=== PATIENT | female | born 1940 | race Caucasian/White ===

== ENCOUNTER 2019-05-14 06:00 | Outpatient (RCR) | payer MEDICARE, OTHER, SELFPAY | END 2019-06-13 00:01 | LOC: SPT 06:00 | PROVIDERS: Family Provider Internal Medicine; Visit Provider Internal Medicine | DX: I89.0 Lymphedema, not elsewhere classified (principal) | CPT/HCPCS: 97140 ==

== ENCOUNTER 2019-06-14 06:00 | Outpatient (RCR) | payer MEDICARE, OTHER, SELFPAY | END 2019-07-14 23:59 | disposition home or self-care (01) | LOC: SPT 06:00 | PROVIDERS: Family Provider Internal Medicine; PCP Internal Medicine; Visit Provider Internal Medicine | DX: I89.0 Lymphedema, not elsewhere classified (principal) | CPT/HCPCS: 97140 ==

== ENCOUNTER 2019-07-15 06:00 | Outpatient (RCR) | payer MEDICARE, OTHER, SELFPAY | END 2019-08-12 23:59 | disposition home or self-care (01) | LOC: SPT 06:00 | PROVIDERS: Family Provider Internal Medicine; PCP Internal Medicine; Visit Provider Internal Medicine | DX: I89.0 Lymphedema, not elsewhere classified (principal) | CPT/HCPCS: 97140 ==

== ENCOUNTER 2019-09-13 06:00 | Outpatient (RCR) | payer MEDICARE, OTHER, SELFPAY | END 2019-10-12 23:59 | disposition home or self-care (01) | LOC: SPT 06:00 | PROVIDERS: Family Provider Internal Medicine; PCP Internal Medicine; Visit Provider Internal Medicine | DX: I89.0 Lymphedema, not elsewhere classified (principal) | CPT/HCPCS: 97140 ==

== ENCOUNTER 2019-12-13 06:00 | Outpatient (RCR) | payer MEDICARE, OTHER, SELFPAY | END 2020-01-12 23:59 | disposition home or self-care (01) | LOC: SPT 06:00 | PROVIDERS: PCP Internal Medicine; Visit Provider Internal Medicine | DX: I97.2 Postmastectomy lymphedema syndrome (principal) | CPT/HCPCS: 97140 ==

== ENCOUNTER 2020-01-13 06:00 | Outpatient (RCR) | payer MEDICARE, OTHER, SELFPAY | END 2020-02-12 23:59 | disposition home or self-care (01) | LOC: SPT 06:00 | PROVIDERS: PCP Internal Medicine; Visit Provider Internal Medicine | DX: M54.5 Low back pain (principal); I89.0 Lymphedema, not elsewhere classified | CPT/HCPCS: 97140 ==

== ENCOUNTER 2020-02-13 06:00 | Outpatient (RCR) | payer MEDICARE, OTHER, SELFPAY | END 2020-03-13 23:59 | disposition home or self-care (01) | LOC: SPT 06:00 | PROVIDERS: PCP Internal Medicine; Visit Provider Internal Medicine | DX: I89.0 Lymphedema, not elsewhere classified (principal) | CPT/HCPCS: 97140 ==

== ENCOUNTER 2020-07-15 06:00 | Outpatient (RCR) | payer MEDICARE, OTHER, SELFPAY | END 2020-08-11 23:59 | disposition home or self-care (01) | LOC: SPT 06:00 | PROVIDERS: PCP Internal Medicine; Visit Provider Internal Medicine | DX: M25.551 Pain in right hip (principal); M25.511 Pain in right shoulder | CPT/HCPCS: 97140 ==

== ENCOUNTER 2020-12-12 06:00 | Outpatient (RCR) | payer MEDICARE, OTHER, SELFPAY | END 2021-01-11 23:59 | disposition home or self-care (01) | LOC: SPT 06:00 | PROVIDERS: PCP Internal Medicine; Visit Provider Internal Medicine | DX: I97.2 Postmastectomy lymphedema syndrome (principal) | CPT/HCPCS: 97140 ==

== ENCOUNTER 2021-01-12 06:00 | Outpatient (RCR) | payer MEDICARE, OTHER, SELFPAY | END 2021-02-11 23:59 | disposition home or self-care (01) | LOC: SPT 06:00 | PROVIDERS: PCP Internal Medicine; Visit Provider Internal Medicine | DX: M25.551 Pain in right hip (principal); M25.511 Pain in right shoulder | CPT/HCPCS: 97140 ==

== ENCOUNTER 2021-08-14 06:00 | Outpatient (RCR) | payer MEDICARE, OTHER, SELFPAY | END 2021-09-11 23:59 | disposition home or self-care (01) | LOC: SPT 06:00 | PROVIDERS: PCP Internal Medicine; Referring Provider Internal Medicine; Visit Provider Internal Medicine | DX: G89.29 Other chronic pain (principal); M54.50 Low back pain, unspecified; I89.0 Lymphedema, not elsewhere classified | CPT/HCPCS: 97110; 97140; 97162 ==

== ENCOUNTER 2021-09-12 06:00 | Outpatient (RCR) | payer MEDICARE, OTHER, SELFPAY | END 2021-10-11 23:59 | disposition home or self-care (01) | LOC: SPT 06:00 | PROVIDERS: PCP Internal Medicine; Referring Provider Internal Medicine; Visit Provider Internal Medicine | DX: G89.29 Other chronic pain (principal) | CPT/HCPCS: 97110; 97116 ==

== ENCOUNTER 2021-10-12 06:00 | Outpatient (RCR) | payer MEDICARE, OTHER, SELFPAY | END 2021-11-11 23:59 | disposition home or self-care (01) | LOC: SPT 06:00 | PROVIDERS: PCP Internal Medicine; Referring Provider Internal Medicine; Visit Provider Internal Medicine | DX: G89.29 Other chronic pain (principal) | CPT/HCPCS: 97110; 97112 ==

== ENCOUNTER 2022-01-09 06:00 | Outpatient (RCR) | payer MEDICARE, OTHER, SELFPAY | END 2022-01-11 23:59 | disposition home or self-care (01) | LOC: SPT 06:00 | PROVIDERS: PCP Internal Medicine; Referring Provider Family Medicine; Visit Provider Family Medicine | DX: I89.0 Lymphedema, not elsewhere classified (principal) | CPT/HCPCS: 97161 ==

== ENCOUNTER 2022-02-12 06:00 | Outpatient (RCR) | payer MEDICARE, OTHER, SELFPAY | END 2022-03-13 23:59 | disposition home or self-care (01) | LOC: SPT 06:00 | PROVIDERS: PCP Internal Medicine; Referring Provider Family Medicine; Visit Provider Family Medicine | DX: M62.89 Other specified disorders of muscle (principal) | CPT/HCPCS: 97140 ==

== ENCOUNTER 2022-02-25 10:45 | Inpatient (IN) | payer MEDICARE, OTHER, SELFPAY ==
[2022-02-25] VITALS (59 sets, daily range): BP systolic 97–138; BP diastolic 49–74; PULSE 67–96; RESP 14–26; TEMP 36.6–37.9; O2SAT 78–100; BMI 28.3
[2022-02-25 12:13] LABS: Basophils # 0.1 10^3/uL (0.0-0.1); Basophils % 0.3 %; Eosinophils % 0.1 %; Hematocrit 33.5 % (37.0-47.0); Hemoglobin 11.1 g/dL (11.5-15.3); Lymphocytes # 0.3 10^3/uL (0.8-4.8); Lymphocytes % 1.7 %; Mean Corpuscular HGB Conc 33.1 g/dL (30.0-36.0); Mean Corpuscular Volume 93.6 fl (81-99); Mean Platelet Volume 11.1 fL (7.4-10.4); Monocytes # 1.3 10^3/uL (0.2-0.9); Monocytes % 8.1 %; Neutrophils # 14.08 10^3/uL (1.8-7.7); Neutrophils % 88.5 %; Nucleated Red Blood Cells % 0 %; Platelet Count 197 10^3/cmm (130-400); Red Blood Count 3.58 10^6/uL (4.1-5.3); Red Cell Distribution Width 14.1 % (12.1-15.1); White Blood Count 15.9 10^3/uL (4.0-10.0)
--- NOTE | 2022-02-25 12:23 | XR_ITS ---
WS: [id number] XR chest 1V portable [id number] REASON FOR EXAM: dyspnea FINDINGS: Moderate tortuosity and ectasia of the thoracic aorta with calcification of the aortic arch. Normal heart size. Calcified granulomatous disease in both hemithoraces. There are reticular interstitial opacities in both lower lung erickson and a vague opacification in the right lower lung field. There are also vague opacities the superior to the left hilum. These abnorma lities are of unknown chronicity. No prior examinations for comparison. Left shoulder replacement. Mild changes of degenerative spondylosis in the mid and lower thoracic spi ne. XR/XR chest 1V portable [id number] IMPRESSION: No findings of congestive heart failure. Opacities in both lung erickson of unknown chronicity most likely chronic however potentially representing subacute/acute pneumonitis.
--- NOTE | 2022-02-25 12:24 | W.ED.GENADLT ---
HPI - General Adult General: Chief complaint: General Medical Stated complaint: Sent by Dr Sweet for UTI Time Seen by Provider: 02/25/22 11:05 Source: patient Mode of arrival: ambulatory Limitations: no limitations History of Present Illness: 81-year-old female presents emergency room from primary care doctor's office she was seen earlier this week and had a UTI. She was started on Bactrim DS she does not seem to have improved and actually may be worsening a little bit she is now mildly hypoxic requiring 2 to 3 L were normally she does not use any oxygen. In addition to that she is not really tracking very well. She is a little bit confused and disoriented when asking questions she seems to struggle a little bit answering. His daughter at the bedside who confirms this. She is unsure of the date or day she is aware of place and month. She has single episode of vomiting no hematemesis or coffee-ground emesis, no hematochezia or melena no flank pain. No specific abdominal pain. Onset (ago): day(s) Severity: moderate Quality: aching Relieving factors: none Exacerbating factors: none Associated symptoms: Reports confusion, decreased appetite, dyspnea, fevers/chills, malaise, nausea, palpitations, short of breath, vomiting and weakness; Deny chest pain, diaphoresis, headache(s), rash, seizures or syncope Treatments prior to arrival: none Review of Systems Const: Reports: fever(s), chills, fatigue and malaise; Denies: diaphoresis ENMT: Denies: throat pain, ear or mastoid pain, nasal discharge or nasal congestion Card: Reports: palpitations; Denies: chest pain or syncope Resp: Reports: dyspnea and non-productive cough GI: Reports: abdominal pain, nausea and vomiting : Denies: flank pain, difficulty voiding, dysuria, urinary frequency or urinary urgency Skin/Breast: Denies: rash Neuro: Reports: confusion; Denies: headache(s) PFSH ED PFSH: Medical History (Updated 02/25/22 @ 17:02 by Noah Merrill DO) Hyperlipidemia Hypothyroidism UTI (urinary tract infection) Social History (Updated 02/25/22 @ 17:00 by Noah Merrill DO) Smoking and tobacco status: never smoked Alcohol intake: never Physical Exam Const: COMMON NORMALS: no acute distress GENERAL APPEARANCE: cooperative and comfortable ORIENTATION/CONSCIOUSNESS: Yes awake HENMT: COMMON NORMALS: normocephalic, atraumatic and hearing grossly normal bilaterally HEAD & SCALP: normocephalic and atraumatic Eye: COMMON NORMALS: Equal, round and reactive pupils present, EOMs intact bilaterally, conjunctivae normal and no scleral icterus CONJUNCTIVA: Yes conjunctivae normal PUPIL: Yes Equal, round and reactive pupils present Neck/C-Spine: COMMON NORMALS: full ROM, no lymphadenopathy, supple and no JVD Resp: COMMON NORMALS: normal respiratory effort, No retractions, No use of accessory muscles and clear to auscultation bilaterally AUSCULTATION: clear to auscultation bilaterally Cardio: COMMON NORMALS: no JVD, regular rate, regular rhythm and No murmurs present (Cardio) RATE: regular rate RHYTHM: regular rhythm GI: COMMON NORMALS: Soft to palpation and No hepatosplenomegaly present AUSCULTATION: Yes normoactive bowel sounds PALPATION: Yes Soft to palpation, No Tenderness to palpation present (GI), No Guarding due to palpation present (GI) and Yes No hepatosplenomegaly present : BLADDER/KIDNEY EXAM: Yes CVA tenderness Back/Pelvis: GENERAL BACK: Yes CVA tenderness Extremity: COMMON NORMALS: normal to inspection, capillary refill normal, no clubbing, cyanosis or edema, no calf tenderness and no pedal edema Skin: COMMON NORMALS: no rashes or lesions noted GENERAL SKIN EXAM: no rashes or lesions noted Course Vital Signs: Vital signs: Vital Signs Temperature 100.3 F H 02/25/22 10:57 Pulse Rate 73 02/25/22 16:30 Respiratory Rate 16 02/25/22 16:30 Blood Pressure 114/65 02/25/22 16:30 Pulse Oximetry 96 02/25/22 16:30 Oxygen Delivery Me thod 02/25/22 12:30 [facility] - General Adult Medical Decision Making Labs and imaging reviewed. Patient has cystitis along with a pyelonephritis and early pneumonia. She is mildly hypoxic requiring oxygen whereas normally she does not use supplemental oxygen. Started on ceftriaxone and Zithromax cussed with hospitalist orders written Medical Records I reviewed the patient's medical records. Lab Data I reviewed the patient's lab results. : 02/25/22 11:43 02/25/22 11:43 Radiology Impressions Chest X-Ray 02/25/22 12:23 IMPRESSION: No findings of congestive heart failure. Opacities in both lung erickson of unknown chronicity most likely chronic however potentially representing subacute/acute pneumonitis. Abdomen/Pelvis CT 02/25/22 13:31 IMPRESSION: 1. Very minimal perinephric stranding around each kidney. No renal obstruction. May be due to mild acute urinary tract infection or could be chronic. 2. Normal appendix. 3. Marked fecal retention and obstipation throughout the RIGHT colon. 4. Sigmoid diverticulosis without acute diverticulitis. 5. Bilateral lower lobe bronchial wall thickening, greatest in the RIGHT lower lobe with volume loss and atelectasis. Consistent with acute bronchitis. 6. LEFT adrenal adenoma. Laboratory Results WBC 15.9 10^3/uL (4.0-10.0) H 02/25/22 11:43 RBC 3.58 10^6/uL (4.1-5.3) L 02/25/22 11:43 Hgb 11.1 g/dL (11.5-15.3) L 02/25/22 11:43 Hct 33.5 % (37.0-47.0) L 02/25/22 11:43 MCV 93.6 fl (81-99) 02/25/22 11:43 MCH 31.0 pg (28.0-34.0) 02/25/22 11:43 MCHC 33.1 g/dL (30.0-36.0) 02/25/22 11:43 RDW 14.1 % (12.1-15.1) 02/25/22 11:43 Plt Count 197 10^3/cmm (130-400) 02/25/22 11:43 MPV 11.1 fL (7.4-10.4) H 02/25/22 11:43 Neut % (Auto) 88.5 % 02/25/22 11:43 Lymph % (Auto) 1.7 % 02/25/22 11:43 [place] % (Auto) 8.1 % 02/25/22 11:43 Eos % (Auto) 0.1 % 02/25/22 11:43 Baso % (Auto) 0.3 % 02/25/22 11:43 Neut # (Auto) 14.08 10^3/uL (1.8-7.7) H 02/25/22 11:43 Lymph # (Auto) 0.3 10^3/uL (0.8-4.8) L 02/25/22 11:43 [place] # (Auto) 1.3 10^3/uL (0.2-0.9) H 02/25/22 11:43 Eos # (Auto) 0.0 10^3/uL (0.0-0.8) 02/25/22 11:43 Baso # (Auto) 0.1 10^3/uL (0.0-0.1) 02/25/22 11:43 Nucleated RBC % (auto) 0 % 02/25/22 11:43 Nucleated RBCs # 0.0 /100WBC 02/25/22 11:43 Sodium 132 mmol/L (136-145) L 02/25/22 11:43 Potassium 4.3 mmol/L (3.5-5.1) 02/25/22 11:43 Chloride 98 mmol/L (98-107) 02/25/22 11:43 Carbon Dioxide 19 mmol/L (22-29) L 02/25/22 11:43 Anion Gap 19.3 (5-19) H 02/25/22 11:43 BUN 66 mg/dL (8-23) H 02/25/22 11:43 Creatinine 3.4 mg/dL (0.5-0.9) H 02/25/22 11:43 GFR Calculation Not Reportable 02/25/22 11:43 Glucose 105 mg/dL (65-115) 02/25/22 11:43 Calculated Osmolality 293 mOsm/kg (285-295) 02/25/22 11:43 Calcium 9.0 mg/dL (8.5-10.5) 02/25/22 11:43 Urine Color Yellow (Yellow) 02/25/22 14: Urine Appearance Hazy (CLEAR) A 02/25/22 14: Urine pH 5 (5-7) 02/25/22 14: Ur Specific [place] 1.015 (1.005-1.030) 02/25/22 14: Urine Protein 1+ (Negative) H 02/25/22 14:25 Urine Glucose (UA) Norm (Normal) 02/25/22 14: Urine Ketones Negative (Negative) 02/25/22 14:25 Urine Blood Neg (Negative) 02/25/22 14:25 Urine Nitrate Negative (Negative) 02/25/22 14:25 Urine Bilirubin Neg (Negative) 02/25/22 14:25 Urine Urobilinogen Norm mg/dL (Negative) 02/25/22 14:25 Ur Leukocyte Esterase 2+ (Negative) H 02/25/22 14:25 Urine RBC 0-4 /hpf (0-2) H 02/25/22 14:25 Urine WBC 55-80 /hpf (0-5) H 02/25/22 14:25 Ur Squamous Epith Cells 0-4 /hpf (0-5) H 02/25/22 14:25 Amorphous Sediment Not Reportable 02/25/22 14:25 Urine Bacteria 4+ /hpf (NONE) H 02/25/22 14:25 Hyaline Casts 0-4 /lpf H 02/25/22 14:25 Fine Granular Casts 0-4 /lpf H 02/25/22 14:25 Discharge Plan Discharge Patient Disposition: Admitted As Inpatient Clinical Impression: UTI (urinary tract infection), Pyelonephritis, Encephalopathy, Pneumonia Condition: Stable Prescriptions: No Action furosemide 40 mg tablet 40 mg PO DAILY trazodone 50 mg tablet 50 mg PO BEDTIME atorvastatin 10 mg tablet 10 mg PO DAILY hydralazine 25 mg tablet 25 mg PO Q8H potassium chloride 10 mEq tablet extended release 10 meq PO DAILY sulfamethoxazole-trimethoprim 800-160 mg tablet 1 tab PO BID levothyroxine 25 mcg tablet 25 mcg PO DAILY meloxicam 7.5 mg tablet 7.5 mg PO DAILY gabapentin 300 mg capsule 300 mg PO BID verapamil 120 mg capsule,ext rel. pellets 24 hr 120 mg PO DAILY oxycodone 5 mg tablet 10 mg PO BID PRN (Reason: Pain) duloxetine 60 mg capsule,delayed release(DR/EC) 120 mg PO DAILY Savella 25 mg tablet 25 mg PO BID Referrals: Gabino Arguello MD [Primary Care Provider] - Coding Level of Care Code ED Communications Agent for Suyapa Yun
[2022-02-25 12:27] LABS: Anion Gap 19.3 (5-19); Blood Urea Nitrogen 66 mg/dL (8-23); Carbon Dioxide 19 mmol/L (22-29); Chloride 98 mmol/L (98-107); Glucose 105 mg/dL (65-115); Osmolality Calculated 293 mOsm/kg (285-295); Potassium 4.3 mmol/L (3.5-5.1); Sodium 132 mmol/L (136-145)
--- NOTE | 2022-02-25 13:31 | CT_ITS ---
WS: [id number] CT ABDOMEN AND PELVIS NONCONTRAST HISTORY: flank pain, history of urinary tract infection. TECHNIQUE: Imaging performed through the abdomen and pelvis. Coronal and sagittal reformats are submi tted. All CT scans at [facility] use at least one of these dose optimization techniques: auto mated exposure control; mA and/or kV adjustment per patient size (includes targeted exams where dose is matched to clinical indication); or iterative reconstruction. DLP: 661.74 mGy.cm COMPARISON: None available. Lower thorax: Mild elevation of the diaphragm with volume loss RIGHT lower lobe. There is bronchial w all thickening and atelectasis in the RIGHT lower lobe and to a lesser extent LEFT lower lobe. Heart is normal size. Moderate-sized hiatal hernia. Liver: Normal size liver. No mass or bile duct dilatation. Gallbladder: Mildly hydropic gallbladder. No adjacent inflammation. No wall thickening is evident on this unenhanced study. No adjacent soft tissue stranding. Pancreas: Moderate atrophy of the pancreas. No duct dilatation. Spleen: Normal spleen with granulomata. Adrenal glands: Normal RIGHT adrenal gland. Mild thickening of the LEFT adrenal gland with a 10 mm LE FT adrenal adenoma. Right kidney: Normal size kidney with no mass or hydronephrosis. Mild perinephric stranding. Left kidney: Normal size kidney with no mass or hydronephrosis. Mild perinephric stranding. Aorta: Moderate to severe atherosclerosis abdominal aorta. No aneurysm. Atherosclerosis continues int o the common iliac arteries. No free fluid, intraperitoneal air or significant lymphadenopathy. GI tract: Contracted stomach. No small bowel obstruction. There is marked fecal retention throughout the RIGHT colon and transverse colon. Sigmoid diverticulosis with no evidence for acute diverticuliti s. Normal appendix. Abdominal wall: Negative. No hernia. Pelvis: Normally distended urinary bladder. Atrophic uterus. Coarse calcifications towards the fundus of the uterus secondary to fibroids. 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 There is bone upon bone with subchondral cy stic changes on both sides of the joint space with remodeling. Posterior lumbar fusion from L3 to L5. Interbody spacers at L3-4 and L4-5. CT/CT kidney stone [id number] IMPRESSION: 1. Very minimal perinephric stranding around each kidney. No renal obstruction . May be due to mild acute urinary tract infection or could be chronic. 2. Normal appendix. 3. Marked fecal retention and obstipation throughout the RIGHT colon. 4. Sigmoid diverticulosis without acute diverticulitis. 5. Bilateral lower lobe bronchial wall thickening, greatest in the RIGHT lower lobe with volume loss and atelectasis. Consistent with acute bronchitis. 6. LEFT adrenal adenoma.
[2022-02-25] MEDS: cefTRIAXone 1,000 MG in sodium chloride 0.9% (plus) 50 ML 100 MG IV (13:36)
[2022-02-25] MEDS: sodium chloride 0.9% 1,000 ML 999 ML IV (13:56)
[2022-02-25] MEDS: azithromycin 500 MG in sodium chloride 0.9% 250 ML 250 MG IV (14:48)
[2022-02-25 15:07] LABS: Add Urine Microscopic? YES; Bacteria Urine 4+ /hpf; Bilirubin Urine Neg (Negative); Blood Urine Neg (Negative); Glucose Urine UA Norm (Normal); Ketones Urine Negative (Negative); Leukocyte Esterase Urine 2+ (Negative); Nitrate Urine Negative (Negative); Protein Urine 1+ (Negative); RBC Urine 0-4 /hpf (0-2); Specific Gravity, Urine 1.015 (1.005-1.030); Squamous Epithelial Cell Urine 0-4 /hpf (0-5); Urine Appearance Hazy (CLEAR); Urine Color Yellow (Yellow); Urobilinogen Urine Norm (Negative); WBC Urine 55-80 /hpf (0-5); pH Urine 5 (5-7)
[2022-02-25 15:08] LABS: Add Urine Culture? Yes; Fine Granular Casts Urine 0-4 /lpf; Hyaline Casts Urine 0-4 /lpf
[2022-02-25] MEDS: heparin 5,000 unit/mL INJ 1 mL 5000 UNIT SUBCUT (17:34)
[2022-02-25] MEDS: sodium chloride 0.9% 1,000 ML 75 ML IV (17:34)
--- NOTE | 2022-02-25 17:54 | P.HP_ITS ---
Providers/Chief Complaint Primary Care Provider: Gabino Arguello MD Chief Complaint: Sent by Dr Sweet for UTI History of Present Illness Darleen Sifuentes is a 81 year old female with past medical history of hypothyroidism, hypertension, history of recent back surgery was brought in with chief complaint of Confusion as well as, fever at home, she was recently being managed for UTI as outpatient by primary care physician, she was kept on Bactrim. When I interacted with the patient she was complaining of not feeling well, as per the daughter's she is slightly confused. Pertinent imaging studies done in the ER: X-ray chest: reticular interstitial opacities in both lower lung erickson and a vague opacification in the right lower lung field. There are also vague opacities the superior to the left hilum. CT ABDOMEN AND PELVIS NONCONTRAST: Very minimal perinephric stranding around each kidney. No renal obstruction. May be due to mild acute urinary tract infection or could be chronic.? LEFT adrenal adenoma. Pertinent labs sepsis: WBC : 15.9 , H&H: PLT : 197 , serum sodium 132 , serum potassium 4.3, BUN serum creatinine 66 / 3.4 , Urinalysis: Urine leukocyte esterase 2+, urine nitrite negative, urine WBC : 55- 80 , urine bacteria 4+ Review of Systems General: Reports: 10 or more systems reviewed and unremarkable except in HPI and below Const: Reports: fever(s); Denies: chills, body aches, change in appetite or diaphoresis Card: Denies: palpitations, edema, swelling of feet/ankles, dyspnea on exertion, orthopnea or leg pain with exertion Resp: Denies: dyspnea, productive cough, wheezing or pain on inspiration GI: Denies: abdominal pain, nausea, vomiting, diarrhea or constipation : Denies: flank pain Musc: Denies: back pain, extremity pain or extremity swelling Neuro: Denies: headache(s), difficulty walking or confusion Medications/Allergies Home Medications Medication Instructions Recorded Confirmed Last Taken Type atorvastatin 10 mg tablet 10 mg PO DAILY 02/25/22 02/25/22 02/25/22 History duloxetine 60 mg capsule,delayed 120 mg PO DAILY 02/25/22 02/25/22 02/25/22 History release furosemide 40 mg tablet 40 mg PO DAILY 02/25/22 02/25/22 02/25/22 History gabapentin 300 mg capsule 300 mg PO BID 02/25/22 02/25/22 02/25/22 History hydralazine 25 mg tablet 25 mg PO Q8H 02/25/22 02/25/22 02/25/22 History levothyroxine 25 mcg tablet 25 mcg PO DAILY 02/25/22 02/25/22 02/25/22 History meloxicam 7.5 mg tablet 7.5 mg PO DAILY 02/25/22 02/25/22 02/25/22 History milnacipran 25 mg tablet (Savella) 25 mg PO BID 02/25/22 02/25/22 02/25/22 History oxycodone 5 mg tablet 10 mg PO BID PRN Pain 02/25/22 02/25/22 02/25/22 History potassium chloride 10 mEq 10 meq PO DAILY 02/25/22 02/25/22 02/25/22 History tablet,extended release sulfamethoxazole 800 1 tab PO BID 02/25/22 02/25/22 02/25/22 History mg-trimethoprim 160 mg tablet trazodone 50 mg tablet 50 mg PO BEDTIME 02/25/22 02/25/22 02/24/22 History verapamil 120 mg 24 hr 120 mg PO DAILY 02/25/22 02/25/22 02/25/22 History capsule,extended release Allergies Allergy/AdvReac Type Severity Reaction Status Date / Time No Known Allergies Allergy Verified 02/25/22 12:19 PFSH Acute PFSH: Medical History (Updated 02/25/22 @ 18:11 by Chavez Laureano MD) Hyperlipidemia Hypothyroidism UTI (urinary tract infection) Social History (Updated 02/25/22 @ 17:00 by Noah Merrill DO) Smoking and tobacco status: never smoked Alcohol intake: never Vitals/I&O/Wt Last Vital Signs Temp 100.3 F H 02/25/22 10:57 Pulse 73 02/25/22 17:40 Resp 19 H 02/25/22 17:40 BP 109/58 02/25/22 17:40 Pulse Ox 90 02/25/22 17:40 O2 Del Method 02/25/22 12:30 02/25/22 02/25/22 02/25/22 06:59 14:59 22:59 Intake Total 50 / 50 Balance 50 / 50 Weight last 48 hrs Weight 72.575 kg Physical Exam Resp: COMMON NORMALS: normal respiratory effort, No retractions, No use of accessory muscles and clear to auscultation bilaterally EFFORT & INSPECTION: Yes symmetric chest movement AUSCULTATION: clear to auscultation bilaterally Cardio: COMMON NORMALS: regular rate, regular rhythm, S1 normal heart sound present, S2 normal heart sound present, No gallops present (Cardio), No murmurs present (Cardio), No rub (Cardio) and Peripheral pulses 2+ throughout RATE: regular rate RHYTHM: regular rhythm HEART SOUNDS: S1 normal heart sound present and S2 normal heart sound present PERIPHERAL PULSES: Peripheral pulses 2+ throughout GI: COMMON NORMALS: Normal to inspection, nondistended, normoactive bowel sounds present, Soft to palpation, non-tender, No hepatosplenomegaly present and no masses AUSCULTATION: Yes normoactive bowel sounds PALPATION: Yes Soft to palpation and Yes No hepatosplenomegaly present RECTAL EXAM: deferred Extremity: COMMON NORMALS: no clubbing, cyanosis or edema and no pedal edema Neuro: COMMON NORMALS: patient oriented x3 Data : 02/25/22 11:43 02/25/22 11:43 Micro: Microbiology 02/25/22 11:43 Blood Culture - Preliminary Blood SPECIMEN COLLECTED 02/25/22 11:43 Blood Culture - Preliminary Blood SPECIMEN COLLECTED A&P Assessment and plan (1) Hypothyroidism: Status: Acute (2) UTI (urinary tract infection): Status: Acute (3) Altered mental status: Status: Acute (4) Pyelonephritis: Status: Acute Plan 81 year old female with past medical history of hypothyroidism, hypertension, was brought in with chief complaint of Confusion as well as, fever at home, she was recently being managed for UTI as outpatient by primary care physician, she was kept on Bactrim. When I interacted with the patient she was complaining of not feeling well, as per the daughter's she is slightly confused. Assessment: Acute metabolic encephalopathy likely secondary to UTI , GOLD GOLD versus GOLD on CKD Questionable pyelonephritis UTI Hypothyroidism Hypertension Hyponatremia Plan: Follow blood culture Follow urine culture Baseline serum creatinine is unknown Monitor BMP Avoid nephrotoxic's Monitor intake output charting Random urine sodium Random urine creatinine Random urine protein Continue gentle IV hydration with normal saline Monitor mentation Continue levothyroxine Hold Lasix, hydralazine, verapamil Hold duloxetine, gabapentin Discontinue Bactrim Continue ceftriaxone for now DVT prophylaxis: On heparin CODE STATUS: Full code Attestations Medical Necessity Statement*: Patient is to be in hospital for management of UTI, altered mental status.Anticipated length of stay greater than 2 midnights. Time Spent in Patient Care: Greater than 35 minutes (>than 50% of time spent in counselling and/or direct pt care on unit) . 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
[2022-02-25] MEDS: trazodone 50 mg Tablet PO (23:40)
[2022-02-26] VITALS (12 sets, daily range): BP systolic 120–137; BP diastolic 61–79; PULSE 60–85; RESP 18; TEMP 36.7–38.3; O2SAT 92–98
[2022-02-26 04:52] LABS: Basophils % 0.3 %; Eosinophils # 0.1 10^3/uL (0.0-0.8); Eosinophils % 0.4 %; Hematocrit 34.5 % (37.0-47.0); Hemoglobin 10.8 g/dL (11.5-15.3); Lymphocytes # 0.4 10^3/uL (0.8-4.8); Lymphocytes % 3.1 %; Mean Corpuscular HGB Conc 31.3 g/dL (30.0-36.0); Mean Corpuscular Hemoglobin 30.8 pg (28.0-34.0); Mean Corpuscular Volume 98.3 fl (81-99); Mean Platelet Volume 11.1 fL (7.4-10.4); Neutrophils # 9.92 10^3/uL (1.8-7.7); Neutrophils % 86.4 %; Nucleated Red Blood Cells % 0 %; Platelet Count 196 10^3/cmm (130-400); Red Blood Count 3.51 10^6/uL (4.1-5.3); Red Cell Distribution Width 14.2 % (12.1-15.1); White Blood Count 11.5 10^3/uL (4.0-10.0)
[2022-02-26] MEDS: heparin 5,000 unit/mL INJ 1 mL 5000 UNIT SUBCUT ×2 (05:10→17:12)
[2022-02-26] MEDS: sodium chloride 0.9% 1,000 ML 75 ML IV ×2 (05:10→17:14)
[2022-02-26 05:16] LABS: Anion Gap 17.1 (5-19); Blood Urea Nitrogen 61 mg/dL (8-23); Calcium 8.7 mg/dL (8.5-10.5); Carbon Dioxide 19 mmol/L (22-29); Chloride 100 mmol/L (98-107); Glucose 88 mg/dL (65-115); Osmolality Calculated 291 mOsm/kg (285-295); Potassium 4.1 mmol/L (3.5-5.1); Sodium 132 mmol/L (136-145)
[2022-02-26] MEDS: cefTRIAXone 1,000 MG in sodium chloride 0.9% (plus) 50 ML 100 MG IV (07:51)
[2022-02-26] MEDS: levothyroxine 25 mcg Tablet PO (07:51)
[2022-02-26] MEDS: atorvastatin 40 mg Tablet 10 MG PO (07:51)
[2022-02-26] MEDS: acetaminophen 325 mg Tablet 650 MG PO ×2 (08:01→20:22)
--- NOTE | 2022-02-26 10:15 | PC.CHAP ---
Pastoral Care Encounter/Spiritual Assessment Type of Contact [] Declined media intern visit [] Patient/Family/Request visit [] Outpatient visit [] Follow-up visit [] Physician referral [] Code/Alert [x] Routine visit [] Staff referral [] Actively dying [] Patient sleeping [] Family support [] [] Out of room [] Palliative care [] [x] Receiving care in room [] Pre-surgical visit [] Trauma [] Long length of stay [] ICU visit [] Other: Relational/Emotional Strength [] Patient feels connected with others/family/visitors/staff [x] Distress [] Loneliness/isolation [] Abandonment Spirituality of Patient [x] Person of [place] [] Attends Mu-Ism of their [place] [x] Believes in Prayer [] Reads Bible or Adventist materials [] There are Spiritual issues to be addressed 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 Interventions [x] Prayer [x] Active listening [x] Non-anxious presence [x] Spiritual/emotional support [] Crisis/trauma care [x] Spiritual counseling [] Bereavement support [] Provided bereavement packet [] Provided Bible/devotional materials [] Provided toy/stuffed animal, coloring book to patient or family member [] Provided Communion [] Anointing/[place] [] Salvation [x] Completed spiritual assessment [] Other: Impact on Illness or Injury [] Angry [] Fearful [x] Anxious [] Often cries [] Exhaustion [x] Unable to work [] Unable to attend yazidi [] Unable to walk/stand [] Unable to read [] Unable to drive [] Unable to eat/drink [] Unable to sleep [] Unable to be with family [] Patient intubated [] Other: Summary not feeling good in some stress able to communicate her feeling glands and body not feeling good has a postive attitude will go home at some point Time spent with patient 10 mins
[2022-02-26] MEDS: piperacillin-tazobactam 3.375 GM in sodium chloride 0.9% (plus) 50 ML IV ×2 (12:04→20:22)
--- NOTE | 2022-02-26 17:47 | P.PN_ITS ---
Subjective Subjective: Patient was seen and examined this morning, she was comfortably sleeping, daughter was at bedside, according to her she still has significant confusion, patient also has temperature spike today noted T-max was: 101. WBC count is trending down, BUN and serum creatinine has slightly improved. Medications: Medication Review Details: Generic Name Dose Route Start Last Admin Trade Name Jasmin PRN Reason Stop Dose Admin Acetaminophen 650 mg 02/25/22 16:15 02/26/22 08:01 Acetaminophen 32 5 Mg Tablet PO 650 mg Q6H PRN Administration Mild/Mod Pain Or Temp >/= 101 Atorvastatin Calci um 10 mg 02/26/22 09:00 02/26/22 07:51 Atorvastatin 40 Mg Tablet PO 10 mg DAILY IRLANDA Administration Heparin Sodium (Po rcine) 5,000 unit 02/25/22 16:15 02/26/22 17:12 Heparin 5,000 Un it/Ml Inj 1 Ml SUBCUT 5,000 unit Q12H IRLANDA Administration Sodium Chloride 1,000 mls @ 75 ml s/hr 02/25/22 16:15 02/26/22 17:14 Sodium Chloride 0.9% IV 75 mls/hr .[id number] IRLANDA Administration Piperacillin Sod/T azobactam 50 mls @ 12.5 mls /hr 02/26/22 12:00 02/26/22 12:04 Sod 3.375 gm/ So dium Chloride IV 12.5 mls/hr Q8H IRLANDA Administration Protocol Levothyroxine Sodi um 25 mcg 02/26/22 09:00 02/26/22 07:51 Levothyroxine 25 Mcg Tablet PO 25 mcg DAILY IRLANDA Administration Trazodone HCl 50 mg 02/25/22 22:53 02/25/22 23:40 Trazodone 50 Mg Tablet PO 50 mg BEDTIME IRLANDA Administration Vitals/I&O/Wt Last Vital Signs Temp 98.5 F 02/26/22 15:56 Pulse 68 02/26/22 15:56 Resp 18 02/26/22 15:56 BP 122/71 02/26/22 15:56 Pulse Ox 95 02/26/22 15:56 O2 Del Method 02/26/22 15:56 O2 Flow Rate 3 02/26/22 15:56 02/26/22 02/26/22 02/26/22 06:59 14:59 22:59 Intake Total 870 / 2170 480 / 480 1385 / 1865 Balance 870 / 2170 480 / 480 1385 / 1865 Weight last 48 hrs Weight 72.575 kg Physical Exam Resp: COMMON NORMALS: normal respiratory effort, No retractions, No use of accessory muscles and clear to auscultation bilaterally EFFORT & INSPECTION: Yes symmetric chest movement AUSCULTATION: clear to auscultation bilaterally Cardio: COMMON NORMALS: regular rate, regular rhythm, S1 normal heart sound present, S2 normal heart sound present, No gallops present (Cardio), No murmurs present (Cardio), No rub (Cardio) and Peripheral pulses 2+ throughout RATE: regular rate RHYTHM: regular rhythm HEART SOUNDS: S1 normal heart sound present and S2 normal heart sound present PERIPHERAL PULSES: Peripheral pulses 2+ throughout GI: COMMON NORMALS: Normal to inspection, nondistended, normoactive bowel soun ds present, Soft to palpation, non-tender, No hepatosplenomegaly present and no masses AUSCULTATION: Yes normoactive bowel sounds PALPATION: Yes Soft to palpation and Yes No hepatosplenomegaly present RECTAL EXAM: deferred Extremity: COMMON NORMALS: no clubbing, cyanosis or edema and no pedal edema Data : 02/26/22 03:51 02/26/22 03:51 Micro: Microbiology 02/25/22 11:43 Blood Culture - Preliminary Blood NEGATIVE TO DATE 02/25/22 11:43 Blood Culture - Preliminary Blood NEGATIVE TO DATE A&P Assessment and plan (1) Hypothyroidism: Status: Acute (2) UTI (urinary tract infection): Status: Acute (3) Altered mental status: Status: Acute (4) Pyelonephritis: Status: Acute Plan 81 year old female with past medical history of hypothyroidism, hypertension, was brought in with chief complaint of Confusion as well as, fever at home, she was recently being managed for UTI as outpatient by primary care physician, she was kept on Bactrim. When I interacted with the patient she was complaining of not feeling well, as per the daughter's she is slightly confused. Assessment: Acute metabolic encephalopathy likely secondary to UTI , GOLD GOLD versus GOLD on CKD Pyelonephritis UTI Hypothyroidism Hypertension Hyponatremia Plan: Follow blood culture Follow urine culture Baseline serum creatinine is unknown Monitor BMP Avoid nephrotoxic's Monitor intake output charting Random urine sodium Random urine creatinine Random urine protein Continue gentle IV hydration with normal saline Monitor mentation Continue levothyroxine Hold Lasix, hydralazine, verapamil Hold duloxetine, gabapentin Discontinue Bactrim Continue ceftriaxone for now DVT prophylaxis: On heparin CODE STATUS: Full code Attestations Medical Necessity Statement*: Patient is to the hospital for management of UTI encephalopathy Time Spent in Patient Care: Greater than 35 minutes (>than 50% of time spent in counselling and/or direct pt care on unit) . Coding Level of Care Code Acute Drinking Water Technician for Chg Fwd Exam Expanded Problem Focused Diagnoses Hypothyroidism E03.9 UTI (urinary tract infection) N39.0 Altered mental status R41.82 Pyelonephritis N12
[2022-02-26] MEDS: trazodone 50 mg Tablet PO (20:22)
[2022-02-27] VITALS (7 sets, daily range): BP systolic 160–177; BP diastolic 70–78; PULSE 66–77; RESP 16–18; TEMP 36.6–36.8; O2SAT 94–97
--- NOTE | 2022-02-27 00:29 | PC.PHAR ---
Zosyn dosage is adjusted from 3.375gm IVPB every 8 hours to 3.375gm IVPB every 12 hours on the basis of the creatinine clearance of 13.56.
[2022-02-27] MEDS: heparin 5,000 unit/mL INJ 1 mL 5000 UNIT SUBCUT ×2 (04:44→15:20)
[2022-02-27 05:15] LABS: Basophils % 0.4 %; Eosinophils # 0.1 10^3/uL (0.0-0.8); Eosinophils % 0.9 %; Hematocrit 36.1 % (37.0-47.0); Hemoglobin 11.3 g/dL (11.5-15.3); Lymphocytes # 0.6 10^3/uL (0.8-4.8); Lymphocytes % 5.7 %; Mean Corpuscular HGB Conc 31.3 g/dL (30.0-36.0); Mean Corpuscular Hemoglobin 30.5 pg (28.0-34.0); Mean Corpuscular Volume 97.3 fl (81-99); Mean Platelet Volume 10.5 fL (7.4-10.4); Monocytes # 1.6 10^3/uL (0.2-0.9); Neutrophils # 8.06 10^3/uL (1.8-7.7); Neutrophils % 76.6 %; Nucleated Red Blood Cells % 0 %; Platelet Count 226 10^3/cmm (130-400); Red Blood Count 3.71 10^6/uL (4.1-5.3); Red Cell Distribution Width 13.9 % (12.1-15.1); White Blood Count 10.5 10^3/uL (4.0-10.0)
[2022-02-27 05:28] LABS: Alanine Aminotransferase 16 U/L (0-33); Albumin Level 2.7 g/dL (3.5-5.2); Alkaline Phosphatase 130 U/L (35-105); Aspartate Amino Transferase 29 U/L (0-32); Blood Urea Nitrogen 42 mg/dL (8-23); Carbon Dioxide 18 mmol/L (22-29); Chloride 105 mmol/L (98-107); Globulin 3.5 g/dL (1.3-4.6); Glucose 101 mg/dL (65-115); Osmolality Calculated 291 mOsm/kg (285-295); Sodium 135 mmol/L (136-145); Total Bilirubin 0.6 mg/dL (0.15-1.2); Total Protein 6.2 g/dL (6.6-8.7)
[2022-02-27] MEDS: sodium chloride 0.9% 1,000 ML 75 ML IV (06:15)
[2022-02-27] MEDS: acetaminophen 325 mg Tablet 650 MG PO (08:19)
[2022-02-27] MEDS: atorvastatin 40 mg Tablet 10 MG PO (08:20)
[2022-02-27] MEDS: levothyroxine 25 mcg Tablet PO (08:20)
[2022-02-27] MEDS: piperacillin-tazobactam 3.375 GM in sodium chloride 0.9% (plus) 50 ML IV ×2 (08:22→15:20)
[2022-02-27] MEDS: duloxetine 60 mg Capsule 120 MG PO (13:19)
[2022-02-27] MEDS: hyDRALAzine 25 mg Tablet PO ×2 (15:20→21:59)
--- NOTE | 2022-02-27 17:47 | P.PN_ITS ---
Subjective Subjective: Patient was seen and examined this morning, patient was seen and examined this morning, much more alert awake oriented, has been afebrile overnight, BUN and serum creatinine is appropriately improving, urine culture is growing gram-negative rods. Patient gives me history of recurrent falls at home.Has worked well with physical therapy. Medications: Medication Review Details: Generic Name Dose Route Start Last Admin Trade Name Freq PRN Reason Stop Dose Admin Acetaminophen 650 mg 02/25/22 16:15 02/27/22 08:19 Acetaminophen 32 5 Mg Tablet PO 650 mg Q6H PRN Administration Mild/Mod Pain Or Temp >/= 101 Atorvastatin Calci um 10 mg 02/26/22 09:00 02/27/22 08:20 Atorvastatin 40 Mg Tablet PO 10 mg DAILY IRLANDA Administration Duloxetine HCl 120 mg 02/27/22 12:15 02/27/22 13:19 Duloxetine 60 Mg Capsule PO 120 mg DAILY IRLANDA Administration Heparin Sodium (Po rcine) 5,000 unit 02/25/22 16:15 02/27/22 15:20 Heparin 5,000 Un it/Ml Inj 1 Ml SUBCUT 5,000 unit Q12H IRLANDA Administration Hydralazine HCl 25 mg 02/27/22 14:00 02/27/22 15:20 Hydralazine 25 M g Tablet PO 25 mg Q8H IRLANDA Administration Sodium Chloride 1,000 mls @ 75 ml s/hr 02/25/22 16:15 02/27/22 06:15 Sodium Chloride 0.9% IV 75 mls/hr .[id number] IRLANDA Administration Piperacillin Sod/T azobactam 50 mls @ 12.5 mls /hr 02/27/22 16:00 02/27/22 15:20 Sod 3.375 gm/ So dium Chloride IV 12.5 mls/hr Q8H IRLANDA Administration Protocol Levothyroxine Sodi um 25 mcg 02/26/22 09:00 02/27/22 08:20 Levothyroxine 25 Mcg Tablet PO 25 mcg DAILY IRLANDA Administration Trazodone HCl 50 mg 02/25/22 22:53 02/26/22 20:22 Trazodone 50 Mg Tablet PO 50 mg BEDTIME IRLANDA Administration Vitals/I&O/Wt Last Vital Signs Temp 98.2 F 02/27/22 15:46 Pulse 73 02/27/22 15:46 Resp 16 02/27/22 15:46 BP 177/77 02/27/22 15:46 Pulse Ox 95 02/27/22 15:46 O2 Del Method 02/27/22 15:46 O2 Flow Rate 1 02/27/22 08:00 02/27/22 02/27/22 02/27/22 06:59 14:59 22:59 Intake Total 1096.25 / 3491.25 530 / 530 Output Total 1150 / 2350 950 / 950 Balance -53.75 / 1141.25 -420 / -420 Physical Exam Const: COMMON NORMALS: patient oriented x3 Resp: COMMON NORMALS: normal respiratory effort, No retractions, No use of accessory muscles and clear to auscultation bilaterally EFFORT & INSPECTION: Yes symmetric chest movement AUSCULTATION: clear to auscultation bilaterally Cardio: COMMON NORMALS: regular rate, regular rhythm, S1 normal heart sound present, S2 normal heart sound present, No gallops present (Cardio), No murmurs present (Cardio), No rub (Cardio) and Peripheral pulses 2+ throughout RATE: regular rate RHYTHM: regular rhythm HEART SOUNDS: S1 normal heart sound present and S2 normal heart sound present PERIPHERAL PULSES: Peripheral pulses 2+ throughout GI: COMMON NORMALS: Normal to inspection, nondistended, normoactive bowel sounds present, Soft to palpation, non-tender, No hepatosplenomegaly present and no masses AUSCULTATION: Yes normoactive bowel sounds PALPATION: Yes Soft to palpation and Yes No hepatosplenomegaly present RECTAL EXAM: deferred Extremity: COMMON NORMALS: no clubbing, cyanosis or edema and no pedal edema Neuro: COMMON NORMALS: patient oriented x3 Data : 02/27/22 04:50 02/27/22 04:50 Micro: Microbiology 02/25/22 14:25 Urine Culture - Preliminary Urine,Clean Catch Gram Negative Rods A&P Assessment and plan (1) Hypothyroidism: Status: Acute (2) UTI (urinary tract infection): Status: Acute (3) Altered mental status: Status: Acute (4) Pyelonephritis: Status: Acute Plan 81 year old female with past medical history of hypothyroidism, hypertension, was brought in with chief complaint of Confusion as well as, fever at home, she was recently being managed for UTI as outpatient by primary care physician, she was kept on Bactrim. When I interacted with the patient she was complaining of not feeling well, as per the daughter's she is slightly confused. Assessment: Acute metabolic encephalopathy likely secondary to UTI , GOLD GOLD versus GOLD on CKD Pyelonephritis UTI Hypothyroidism Hypertension Hyponatremia Plan: Blood culture:NTD Urine culture:GNR Baseline serum creatinine is unknown Monitor BMP Avoid nephrotoxic's Monitor intake output charting Random urine sodium Random urine creatinine Random urine protein Continue gentle IV hydration with normal saline Monitor mentation Continue levothyroxine Hold Lasix, hydralazine, verapamil Hold duloxetine, gabapentin Discontinue Bactrim Continue ceftriaxone for now DVT prophylaxis: On heparin CODE STATUS: Full code Attestations Medical Necessity Statement*: Patient is still in hospital for management of UTI encephalopathy, GOLD. Time Spent in Patient Care: Greater than 35 minutes (>than 50% of time spent in counselling and/or direct pt care on unit) . Coding Level of Care Code Acute Obstetric Anaesthetist for g Fwd Diagnoses Hypothyroidism E03.9 UTI (urinary tract infection) N39.0 Altered mental status R41.82 Pyelonephritis N12
[2022-02-27] MEDS: trazodone 50 mg Tablet PO (21:59)
[2022-02-28] VITALS (11 sets, daily range): BP systolic 150–210; BP diastolic 72–103; PULSE 58–73; RESP 15–18; TEMP 36.7–37.6; O2SAT 93–95
[2022-02-28] MEDS: piperacillin-tazobactam 3.375 GM in sodium chloride 0.9% (plus) 50 ML IV ×3 (00:38→16:48)
[2022-02-28] MEDS: heparin 5,000 unit/mL INJ 1 mL 5000 UNIT SUBCUT ×2 (03:22→16:49)
[2022-02-28] MEDS: sodium chloride 0.9% 1,000 ML 75 ML IV (04:55)
[2022-02-28 05:17] LABS: Basophils # 0.1 10^3/uL (0.0-0.1); Basophils % 0.8 %; Eosinophils # 0.1 10^3/uL (0.0-0.8); Eosinophils % 1.5 %; Hematocrit 34.3 % (37.0-47.0); Lymphocytes # 1.1 10^3/uL (0.8-4.8); Lymphocytes % 11.9 %; Mean Corpuscular HGB Conc 32.1 g/dL (30.0-36.0); Mean Corpuscular Hemoglobin 30.8 pg (28.0-34.0); Mean Corpuscular Volume 96.1 fl (81-99); Mean Platelet Volume 10.2 fL (7.4-10.4); Monocytes # 1.4 10^3/uL (0.2-0.9); Neutrophils # 6.03 10^3/uL (1.8-7.7); Neutrophils % 65.8 %; Nucleated Red Blood Cells % 0 %; Platelet Count 261 10^3/cmm (130-400); Red Blood Count 3.57 10^6/uL (4.1-5.3); Red Cell Distribution Width 13.5 % (12.1-15.1); White Blood Count 9.2 10^3/uL (4.0-10.0)
[2022-02-28 05:36] LABS: Alanine Aminotransferase 13 U/L (0-33); Albumin Level 2.6 g/dL (3.5-5.2); Alkaline Phosphatase 115 U/L (35-105); Anion Gap 15.8 (5-19); Aspartate Amino Transferase 22 U/L (0-32); Blood Urea Nitrogen 23 mg/dL (8-23); Calcium 8.6 mg/dL (8.5-10.5); Carbon Dioxide 19 mmol/L (22-29); Chloride 109 mmol/L (98-107); Glucose 104 mg/dL (65-115); Osmolality Calculated 294 mOsm/kg (285-295); Potassium 3.8 mmol/L (3.5-5.1); Sodium 140 mmol/L (136-145); Total Bilirubin 0.6 mg/dL (0.15-1.2); Total Protein 5.6 g/dL (6.6-8.7)
[2022-02-28] MEDS: hyDRALAzine 25 mg Tablet PO ×3 (05:39→21:00)
[2022-02-28] MEDS: duloxetine 60 mg Capsule 120 MG PO (10:12)
[2022-02-28] MEDS: levothyroxine 25 mcg Tablet PO (10:12)
[2022-02-28] MEDS: atorvastatin 40 mg Tablet 10 MG PO (10:12)
[2022-02-28] MEDS: amlodipine 10 mg Tablet PO (11:20)
--- NOTE | 2022-02-28 11:24 | PC.SOCIAL ---
IMM update Imm updated with patient at bedside. Copy of page 2 provided. Patient verbalized understanding. Copy in chart initialed, dated and timed.
[2022-02-28] MEDS: cloNIDine 0.1 mg Tablet 0.2 MG PO (12:36)
[2022-02-28] MEDS: gabapentin 300 mg Capsule PO ×2 (13:24→20:58)
--- NOTE | 2022-02-28 15:09 | PM.PN ---
Subjective Subjective: Patient was seen and examined this morning. Home antihypertensive medications have been resumed completely, blood pressure is elevated today, but other than that she is doing fine, has been afebrile, good urine output, kidney function is slowly progressing towards baseline, working well with physical therapy, mentation is improving daily.Leukocytosis is resolved. Medications: Medication Review Details: Generic Name Dose Route Start Last Admin Trade Name Freq PRN Reason Stop Dose Admin Acetaminophen 650 mg 02/25/22 16:15 02/27/22 08:19 Acetaminophen 32 5 Mg Tablet PO 650 mg Q6H PRN Administration Mild/Mod Pain Or Temp >/= 101 Atorvastatin Calci um 10 mg 02/26/22 09:00 02/28/22 10:12 Atorvastatin 40 Mg Tablet PO 10 mg DAILY IRLANDA Administration Duloxetine HCl 120 mg 02/27/22 12:15 02/28/22 10:12 Duloxetine 60 Mg Capsule PO 120 mg DAILY IRLANDA Administration Heparin Sodium (Po rcine) 5,000 unit 02/25/22 16:15 02/28/22 03:22 Heparin 5,000 Un it/Ml Inj 1 Ml SUBCUT 5,000 unit Q12H IRLANDA Administration Hydralazine HCl 25 mg 02/27/22 14:00 02/28/22 13:25 Hydralazine 25 M g Tablet PO 25 mg Q8H IRLANDA Administration Sodium Chloride 1,000 mls @ 75 ml s/hr 02/25/22 16:15 02/28/22 12:39 Sodium Chloride 0.9% IV Not Given .[id number] IRLANDA Piperacillin Sod/T azobactam 50 mls @ 12.5 mls /hr 02/27/22 16:00 02/28/22 10:11 Sod 3.375 gm/ So dium Chloride IV 12.5 mls/hr Q8H IRLANDA Administration Protocol Levothyroxine Sodi um 25 mcg 02/26/22 09:00 02/28/22 10:12 Levothyroxine 25 Mcg Tablet PO 25 mcg DAILY IRLANDA Administration Non-Formulary Medi cation 25 mg 02/28/22 13:00 02/28/22 13:25 Milnacipran [Bassam guerita] PO 25 mg BID@0900,2100 IRLANDA Administration Non-Formulary 0 each 02/28/22 13:15 02/28/22 13:22 Medication Verapam il PO Not Given 120mg Sr Cap DAILY IRLANDA Trazodone HCl 50 mg 02/25/22 22:53 02/27/22 21:59 Trazodone 50 Mg Tablet PO 50 mg BEDTIME IRLANDA Administration Vitals/I&O/Wt Last Vital Signs Temp 98.3 F 02/28/22 11:48 Pulse 64 02/28/22 11:48 Resp 17 02/28/22 11:48 BP 210/90 02/28/22 12:36 Pulse Ox 95 02/28/22 11:48 O2 Del Method 02/28/22 11:48 O2 Flow Rate 1 02/27/22 08:00 02/28/22 02/28/22 02/28/22 06:59 14:59 22:59 Intake Total 50 / 1750 120 / 120 Output Total 1999 / 2949 Balance -1950 / -1200 120 / 120 Physical Exam Const: COMMON NORMALS: patient oriented x3 Resp: COMMON NORMALS: normal respiratory effort, No retractions, No use of accessory muscles and clear to auscultation bilaterally EFFORT & INSPECTION: Yes symmetric chest movement AUSCULTATION: clear to auscultation bilaterally Cardio: COMMON NORMALS: regular rate, regular rhythm, S1 normal heart sound present, S2 normal heart sound present, No gallops present (Cardio), No murmurs present (Cardio), No rub (Cardio) and Peripheral pulses 2+ throughout RATE: regular rate RHYTHM: regular rhythm HEART SOUNDS: S1 normal heart sound present and S2 normal heart sound present PERIPHERAL PULSES: Peripheral pulses 2+ throughout GI: COMMON NORMALS: Normal to inspection, nondistended, normoactive bowel sounds present, Soft to palpation, non-tender, No hepatosplenomegaly present and no masses AUSCULTATION: Yes normoactive bowel sounds PALPATION: Yes Soft to palpation and Yes No hepatosplenomegaly present RECTAL EXAM: deferred Extremity: COMMON NORMALS: no clubbing, cyanosis or edema and no pedal edema Neuro: COMMON NORMALS: patient oriented x3 Data : 02/28/22 04:58 02/28/22 04:58 Micro: Microbiology 02/25/22 11:43 Blood Culture - Preliminary Blood NEGATIVE TO DATE A&P Assessment and plan (1) Hypothyroidism: Status: Acute (2) UTI (urinary tract infection): Status: Acute (3) Altered mental status: Status: Acute (4) Pyelonephritis: Status: Acute Plan 81 year old female with past medical history of hypothyroidism, hypertension, was brought in with chief complaint of Confusion as well as, fever at home, she was recently being managed for UTI as outpatient by primary care physician, she was kept on Bactrim. When I interacted with the patient she was complaining of not feeling well, as per the daughter's she is slightly confused. Assessment: Acute metabolic encephalopathy likely secondary to UTI , GOLD GOLD versus GOLD on CKD Pyelonephritis UTI Hypothyroidism Hypertension Hyponatremia Plan: Blood culture:NTD Urine culture:GNR Baseline serum creatinine is unknown Monitor BMP Avoid nephrotoxic's Monitor intake output charting Random urine sodium Random urine creatinine Random urine protein Continue gentle IV hydration with normal saline Monitor mentation Continue levothyroxine Hold Lasix, hydralazine, verapamil Hold duloxetine, gabapentin Discontinue Bactrim Continue ceftriaxone for now DVT prophylaxis: On heparin CODE STATUS: Full code Attestations Medical Necessity Statement*: Patient is to be in hospital for management of UTI, acute kidney injury. Coding Level of Care Code Acute Tools And Parts Attendant for Suyapa Yun Diagnoses Hypothyroidism E03.9 UTI (urinary tract infection) N39.0 Altered mental status R41.82 Pyelonephritis N12
[2022-02-28] MEDS: trazodone 50 mg Tablet PO (20:59)
[2022-03-01] VITALS (10 sets, daily range): BP systolic 132–193; BP diastolic 68–94; PULSE 61–76; RESP 14–18; TEMP 36.4–37.3; O2SAT 91–95
[2022-03-01] MEDS: piperacillin-tazobactam 3.375 GM in sodium chloride 0.9% (plus) 50 ML IV (00:11)
[2022-03-01] MEDS: sodium chloride 0.9% 1,000 ML 75 ML IV (00:11)
[2022-03-01] MEDS: heparin 5,000 unit/mL INJ 1 mL 5000 UNIT SUBCUT (05:18)
[2022-03-01] MEDS: hyDRALAzine 25 mg Tablet PO (05:19)
[2022-03-01 05:56] LABS: Basophils # 0.1 10^3/uL (0.0-0.1); Basophils % 0.9 %; Eosinophils # 0.3 10^3/uL (0.0-0.8); Eosinophils % 2.8 %; Hematocrit 35.9 % (37.0-47.0); Hemoglobin 11.3 g/dL (11.5-15.3); Lymphocytes % 18.6 %; Mean Corpuscular HGB Conc 31.5 g/dL (30.0-36.0); Mean Corpuscular Hemoglobin 30.2 pg (28.0-34.0); Mean Platelet Volume 10.3 fL (7.4-10.4); Monocytes # 1.3 10^3/uL (0.2-0.9); Monocytes % 11.9 %; Neutrophils # 6.37 10^3/uL (1.8-7.7); Nucleated Red Blood Cells % 0 %; Platelet Count 322 10^3/cmm (130-400); Red Blood Count 3.74 10^6/uL (4.1-5.3); Red Cell Distribution Width 13.6 % (12.1-15.1)
[2022-03-01 06:29] LABS: Alanine Aminotransferase 15 U/L (0-33); Albumin Level 2.8 g/dL (3.5-5.2); Alkaline Phosphatase 127 U/L (35-105); Anion Gap 13.9 (5-19); Aspartate Amino Transferase 22 U/L (0-32); Blood Urea Nitrogen 13 mg/dL (8-23); Calcium 8.7 mg/dL (8.5-10.5); Carbon Dioxide 22 mmol/L (22-29); Chloride 110 mmol/L (98-107); Creatinine Clr Calc Pharmacy 45.2125; Globulin 2.9 g/dL (1.3-4.6); Glucose 98 mg/dL (65-115); Osmolality Calculated 294 mOsm/kg (285-295); Potassium 3.9 mmol/L (3.5-5.1); Sodium 142 mmol/L (136-145); Total Bilirubin 0.5 mg/dL (0.15-1.2); Total Protein 5.7 g/dL (6.6-8.7)
[2022-03-01 06:49] LABS: Neutrophils % 65.8 %; Slide Review Slide Review Perform
[2022-03-01] MEDS: oxyCODONE-APAP 10-325 mg Tablet 1 TAB PO (09:26)
[2022-03-01] MEDS: gabapentin 300 mg Capsule PO (09:28)
[2022-03-01] MEDS: atorvastatin 40 mg Tablet 10 MG PO (09:28)
[2022-03-01] MEDS: levothyroxine 25 mcg Tablet PO (09:28)
[2022-03-01] MEDS: duloxetine 60 mg Capsule 120 MG PO (09:28)
[2022-03-01] MEDS: ertapenem 1,000 MG in sodium chloride 0.9% (plus) 100 ML 200 MG IV (09:34)
--- NOTE | 2022-03-01 10:11 | P.DS_ITS ---
Discharge Providers Date of Admission: 02/25/22 16:15 Date of Discharge: March 01, 2022 Attending Provider at Admission: Chavez Laureano MD Attending Provider at Discharge: Chavez Laureano MD Primary Care Provider: Gabino Arguello MD Diagnoses at Discharge Discharge Diagnosis (1) Hypothyroidism: Status: Acute (2) UTI (urinary tract infection): Status: Acute (3) Altered mental status: Status: Acute (4) Pyelonephritis: Status: Acute Reason for Visit Reason for Visit: Sent by Dr Sweet for UTI Hospital Course Hospital Course 81 year old female with past medical history of hypothyroidism, hypertension, history of recent back surgery was brought in with chief complaint of Confusion as well as, fever at home, she was recently being managed for UTI as outpatient by primary care physician, she was kept on Bactrim. During the hospital stay she was managed for: Acute metabolic encephalopathy secondary to UTI: She was kept on Zosyn, she also received 1 dose of ertapenem, urine culture grew ESBL, she was discharged on Augmentin for additional 5 days, she was also managed for GOLD on CKD likely secondary to Dehydration, responded well to IV hydration at the time of discharge serum creatinine was 0.9. Blood cultures were negative, CT abdomen and pelvis was suggestive of possible pyelonephritis, given the fact that she was covered with broad-spectrum antibiotics, was reassuring for pyelonephritis treatment. Patient overall responded well to above medical management and was discharged in stable condition to home, she worked well with physical therapy, and was safe for home discharge. Physical Exam Narrative: NAD Resp: COMMON NORMALS: normal respiratory effort, No retractions, No use of accessory muscles and clear to auscultation bilaterally EFFORT & INSPECTION: Yes symmetric chest movement AUSCULTATION: clear to auscultation bilaterally Cardio: COMMON NORMALS: regular rate, regular rhythm, S1 normal heart sound present, S2 normal heart sound present, No gallops present (Cardio), No murmurs present (Cardio), No rub (Cardio) and Peripheral pulses 2+ throughout RATE: regular rate RHYTHM: regular rhythm HEART SOUNDS: S1 normal heart sound present and S2 normal heart sound present PERIPHERAL PULSES: Peripheral pulses 2+ throughout GI: COMMON NORMALS: Normal to inspection, nondistended, normoactive bowel sounds present, Soft to palpation, non-tender, No hepatosplenomegaly present and no masses AUSCULTATION: Yes normoactive bowel sounds PALPATION: Yes Soft to palpation and Yes No hepatosplenomegaly present RECTAL EXAM: deferred Extremity: COMMON NORMALS: no clubbing, cyanosis or edema and no pedal edema Discharge Data Studies Completed and Pending Completed Studies During Hospitalization Category Date Time Status CT kidney stone [id number] Stat Cat Scan 02/25/22 13:31 Completed XR chest 1V portable [id number] Stat Exams 02/25/22 12:23 Completed Pending at discharge Category Date Time Status Blood Culture Stat Lab 02/25/22 11:43 Results Radiology Impressions Chest X-Ray 02/25/22 12:23 IMPRESSION: No findings of congestive heart failure. Opacities in both lung erickson of unknown chronicity most likely chronic however potentially representing subacute/acute pneumonitis. Abdomen/Pelvis CT 02/25/22 13:31 IMPRESSION: 1. Very minimal perinephric stranding around each kidney. No renal obstruction. May be due to mild acute urinary tract infection or could be chronic. 2. Normal appendix. 3. Marked fecal retention and obstipation throughout the RIGHT colon. 4. Sigmoid diverticulosis without acute diverticulitis. 5. Bilateral lower lobe bronchial wall thickening, greatest in the RIGHT lower lobe with volume loss and atelectasis. Consistent with acute bronchitis. 6. LEFT adrenal adenoma. Laboratory Results WBC 11.0 10^3/uL (4.0-10.0) H 03/01/22 05:17 RBC 3.74 10^6/uL (4.1-5.3) L 03/01/22 05:17 Hgb 11.3 g/dL (11.5-15.3) L 03/01/22 05:17 Hct 35.9 % (37.0-47.0) L 03/01/22 05:17 MCV 96.0 fl (81-99) 03/01/22 05:17 MCH 30.2 pg (28.0-34.0) 03/01/22 05:17 MCHC 31.5 g/dL (30.0-36.0) 03/01/22 05:17 RDW 13.6 % (12.1-15.1) 03/01/22 05:17 Plt Count 322 10^3/cmm (130-400) 03/01/22 05:17 MPV 10.3 fL (7.4-10.4) 03/01/22 05:17 Neut % (Auto) 65.8 % 03/01/22 05:17 Lymph % (Auto) 18.6 % 03/01/22 05:17 Morrison % (Auto) 11.9 % 03/01/22 05:17 Eos % (Auto) 2.8 % 03/01/22 05:17 Baso % (Auto) 0.9 % 03/01/22 05:17 Neut # (Auto) 6.37 10^3/uL (1.8-7.7) 03/01/22 05:17 Lymph # (Auto) 2.0 10^3/uL (0.8-4.8) 03/01/22 05:17 Morrison # (Auto) 1.3 10^3/uL (0.2-0.9) H 03/01/22 05:17 Eos # (Auto) 0.3 10^3/uL (0.0-0.8) 03/01/22 05:17 Baso # (Auto) 0.1 10^3/uL (0.0-0.1) 03/01/22 05:17 Nucleated RBC % (auto) 0 % 03/01/22 05:17 Nucleated RBCs # 0.0 /100WBC 03/01/22 05:17 Sodium 142 mmol/L (136-145) 03/01/22 05:17 Potassium 3.9 mmol/L (3.5-5.1) 03/01/22 05:17 Chloride 110 mmol/L (98-107) H 03/01/22 05:17 Carbon Dioxide 22 mmol/L (22-29) 03/01/22 05:17 Anion Gap 13.9 (5-19) 03/01/22 05:17 BUN 13 mg/dL (8-23) 03/01/22 05:17 Creatinine 0.9 mg/dL (0.5-0.9) 03/01/22 05:17 GFR Calculation Not Reportable 03/01/22 05:17 Glucose 98 mg/dL (65-115) 03/01/22 05:17 Calculated Osmolality 294 mOsm/kg (285-295) 03/01/22 05:17 Calcium 8.7 mg/dL (8.5-10.5) 03/01/22 05:17 Total Bilirubin 0.5 mg/dL (0.15-1.2) 03/01/22 05:17 AST 22 U/L (0-32) 03/01/22 05:17 ALT 15 U/L (0-33) 03/01/22 05:17 Alkaline Phosphatase 127 U/L (35-105) H 03/01/22 05:17 Total Protein 5.7 g/dL (6.6-8.7) L 03/01/22 05:17 Albumin 2.8 g/dL (3.5-5.2) L 03/01/22 05:17 Globulin 2.9 g/dL (1.3-4.6) 03/01/22 05:17 Urine Color Yellow (Yellow) 02/25/22 14:25 Urine Appearance Hazy (CLEAR) A 02/25/22 14:25 Urine pH 5 (5-7) 02/25/22 14:25 Ur Specific [place] 1.015 (1.005-1.030) 02/25/22 14:25 Urine Protein 1+ (Negative) H 02/25/22 14:25 Urine Glucose (UA) Norm (Normal) 02/25/22 14:25 Urine Ketones Negative (Negative) 02/25/22 14:25 Urine Blood Neg (Negative) 02/25/22 14:25 Urine Nitrate Negative (Negative) 02/25/22 14:25 Urine Bilirubin Neg (Negative) 02/25/22 14:25 Urine Urobilinogen Norm mg/dL (Negative) 02/25/22 14:25 Ur Leukocyte Esterase 2+ (Negative) H 02/25/22 14:25 Urine RBC 0-4 /hpf (0-2) H 02/25/22 14:25 Urine WBC 55-80 /hpf (0-5) H 02/25/22 14:25 Ur Squamous Epith Cells 0-4 /hpf (0-5) H 02/25/22 14:25 Amorphous Sediment Not Reportable 02/25/22 14:25 Urine Bacteria 4+ /hpf (NONE) H 02/25/22 14:25 Hyaline Casts 0-4 /lpf H 02/25/22 14:25 Fine Granular Casts 0-4 /lpf H 02/25/22 14:25 Vitals Last Vital Signs Temp 97.6 F 03/01/22 08:00 Pulse 65 03/01/22 08:00 Resp 16 03/01/22 09:26 BP 187/88 03/01/22 08:00 Pulse Ox 91 03/01/22 08:00 O2 Del Method 03/01/22 08:00 O2 Flow Rate 1 02/27/22 08:00 Discharge Plan Discharge Patient Disposition: Home Condition: Stable Prescriptions: New Augmentin 500-125 mg tablet 1 tab PO BID 5 Days Qty: 10 0RF Continued trazodone 50 mg tablet 50 mg PO BEDTIME atorvastatin 10 mg tablet 10 mg PO DAILY hydralazine 25 mg tablet 25 mg PO Q8H levothyroxine 25 mcg tablet 25 mcg PO DAILY gabapentin 300 mg capsule 300 mg PO BID verapamil 120 mg capsule,ext rel. pellets 24 hr 120 mg PO DAILY oxycodone 5 mg tablet 10 mg PO BID PRN (Reason: Pain) duloxetine 60 mg capsule,delayed release(DR/EC) 120 mg PO DAILY Savella 25 mg tablet 25 mg PO BID Held furosemide 40 mg tablet 40 mg PO DAILY Hold Instructions: Resume on 03/08/22. potassium chloride 10 mEq tablet extended release 10 meq PO DAILY Hold Instructions: Resume on 03/13/22. meloxicam 7.5 mg tablet 7.5 mg PO DAILY Hold Instructions: Resume on 03/13/22. Discontinued sulfamethoxazole-trimethoprim 800-160 mg tablet 1 tab PO BID Discharge Orders: Discharge Order (Routine); Ordered 03/01/22 Ordered By: Chavez Laureano Referrals: Yonathan Sweet DO [Referring] - (Please call [facility] for an follow-up appointment with Dr. Sweet in 4 to 7 days. ) Patient Instructions: Amoxicillin/Clavulanate Potassium (By mouth), Urinary Tract Infection in Women (GEN), Opioid Safety, Pyelonephritis Discharge Attestations Time Spent in Discharge Care*: less than 30 min Quality Metrics Clinical Quality Measures [ No reported AMI, CVA or VTE this stay] Coding Level of Care Code Acute Chg FW DC note Diagnoses Hypothyroidism E03.9 UTI (urinary tract infection) N39.0 Altered mental status R41.82 Pyelonephritis N12
[2022-03-01] MEDS: hyDRALAzine 20 mg/mL INJ 1 mL 10 MG IVP (12:39)
[2022-03-01] MEDS: acetaminophen 325 mg Tablet 650 MG PO (12:40)
--- NOTE | 2022-03-01 13:35 | PC.NURSE ---
at 1240..bp 182/94 (manual bp cuff).hydralazine 10 mg given iv as ordered.at 1310 bp 132/68
--- NOTE | 2022-03-01 14:29 | PC.NURSE ---
discharge instructions given and explained to pt and pt's cg daughter.they verb understanding of instructions.discharged via w/c to exit at this time.daughter to drive pt home.
--- NOTE | 2022-03-01 14:31 | PC.NURSE ---
pt voided post catheter removal.
== END 2022-03-01 14:31 | disposition home or self-care (01) | DRG 689 ==
LOC: ER 17:02 → MEDSURG 22:33
PROVIDERS: Admitting Provider Internal Medicine; Emergency Provider Family Medicine; PCP Internal Medicine; Visit Provider Internal Medicine
DX: N39.0 Urinary tract infection, site not specified (principal); G93.41 Metabolic encephalopathy; N17.9 Acute kidney failure, unspecified; E87.1 Hypo-osmolality and hyponatremia; E03.9 Hypothyroidism, unspecified; I12.9 Hypertensive chronic kidney disease with stage 1 through stage 4 chronic kidney disease, or unspecified chronic kidney disease; N18.9 Chronic kidney disease, unspecified; Z87.440 Personal history of urinary (tract) infections; E78.5 Hyperlipidemia, unspecified; N12 Tubulo-interstitial nephritis, not specified as acute or chronic; B96.20 Unspecified Escherichia coli [E. coli] as the cause of diseases classified elsewhere; E86.0 Dehydration; Z79.891 Long term (current) use of opiate analgesic
CPT/HCPCS: 36415; 71045; 74176; 80048; 80053; 81001; 85025; 87040; 87077; 87086; 87186; 96365; 96372; 97110; 97116; 97161; 99285; J0360; J0456; J0696; J1335; J1644; J2543; J7030; J7050

== ENCOUNTER 2022-03-14 06:00 | Outpatient (RCR) | payer MEDICARE, OTHER, SELFPAY | END 2022-04-13 23:59 | disposition home or self-care (01) | LOC: SPT 06:00 | PROVIDERS: PCP Internal Medicine; Visit Provider Family Medicine | DX: I89.0 Lymphedema, not elsewhere classified (principal) | CPT/HCPCS: 97140 ==

== ENCOUNTER 2022-04-14 06:00 | Outpatient (RCR) | payer MEDICARE, OTHER, SELFPAY | END 2022-05-13 23:59 | disposition home or self-care (01) | LOC: SPT 06:00 | PROVIDERS: PCP Internal Medicine; Visit Provider Family Medicine | DX: I89.0 Lymphedema, not elsewhere classified (principal) | CPT/HCPCS: 97140 ==

== ENCOUNTER 2022-07-15 06:00 | Outpatient (RCR) | payer MEDICARE, OTHER, SELFPAY | END 2022-08-11 23:59 | disposition home or self-care (01) | LOC: SPT 06:00 | PROVIDERS: PCP Internal Medicine; Visit Provider Family Medicine | DX: I89.0 Lymphedema, not elsewhere classified (principal) | CPT/HCPCS: 97140 ==

== ENCOUNTER 2022-09-16 22:36 | Inpatient (IN) | payer MEDICARE, OTHER, SELFPAY ==
[2022-09-16 22:41] VITALS: BP 145/58; PULSE 107; RESP 18; TEMP 38.3; O2SAT 88; BMI 26.6
--- NOTE | 2022-09-16 23:08 | XRR_ITS ---
PROCEDURE INFORMATION: Exam: XR Chest Exam date and time: 09/16/2022 11:13 PM Age: 82 years old Clinical indication: Fever; Additional info: Hypoxia, fevers TECHNIQUE: Imaging protocol: Radiologic exam of the chest. Views: 1 view. COMPARISON: CT kidney stone [id number] 02/25/2022 1:43 PM FINDINGS: Lungs: Emphysematous changes. Pleural spaces: Unremarkable. No pleural effusion. No pneumothorax. Heart/Mediastinum: Hiatal hernia suspected. Bones/joints: Unremarkable. XR/XR chest 1V portable [id number] IMPRESSION: 1. Negative for infiltrate. 2. Emphysematous changes. 3. Hiatal hernia suspected.
--- NOTE | 2022-09-16 23:16 | ED_ITS ---
Documented by User: JOVI Platt 09/17/22 01:58 HPI - Female Genitourinary General: Chief complaint: Urogenital-Female Stated complaint: UTI Infections Time Seen by Provider: 09/16/22 22:45 Source: family Mode of arrival: wheelchair Limitations: altered mental status History of Present Illness: Patient is an 82-year-old female here along with family members for concerns of UTI and confusion. Family states that patient was on antibiotics 2 weeks ago for UTI and that we got it cleared up but it came back . Family states they were placed on antibiotics by their PCP yesterday. They state over the past 1 to 2 days patient's mental status has declined and she has become confused which is similar to presentations in the past when she has been diagnosed with UTIs. Family states patient has been running fevers of 102. Family states patient was complaining of some back pain yesterday. Family states she has had a little cough. They state patient was admitted to our hospital in 02/2022 with almost identical symptoms. They state her oxygen was running a little low on that visit. She arrives today with an O2 of 88%. She normally is not on home O2. Patient herself is not really able to provide much history given her mental status. Family states she is normally alert and oriented and talkative. PMH significant for hypothyroidism, hyperlipidemia, HTN, lower extremity edema, depression, and chronic back/hip pain. MD elicited complaint: UTI Pertinent past history: recurrent UTIs Onset (ago): day(s) Associated symptoms: Reports nausea; Deny abdominal pain Treatment prior to arrival: other (oral antibiotics) Sexual activity: No Patient : No Review of Systems General: Reports: ROS unobtainable due to mental status and Other (answers provided by family members) Const: Reports: fever(s) (up to 102), fatigue and malaise Resp: Reports: dyspnea, productive cough and chest congestion GI: Reports: nausea; Denies: abdominal pain, vomiting or change in bowel habits : Reports: flank pain (they report patient had been complaining of some back pain); Denies: urinary frequency Musc: Reports: back pain Skin/Breast: Denies: rash Neuro: Reports: confusion, behavioral changes and difficulty communicating thoughts; Denies: Slurred speech present or seizure-like activity PFS ED PFSH: Medical History Hyperlipidemia Hypothyroidism UTI (urinary tract infection) Social History Smoking and tobacco status: never smoked Alcohol intake: never Physical Exam Const: COMMON NORMALS: average body habitus, alert and well nourished EXAM LIMITATIONS: altered mental status GENERAL APPEARANCE: cooperative and in distress (acute respiratory distress with hypoxia ) ORIENTATION/CONSCIO USNESS: Yes awake, Yes oriented to person, Yes oriented to place and Yes confused OTHER: patient can answer some questions appropriately such as name, , zip code, state, accompanying family members names, etc but at other times during exam her speech is illogical and disorganized HENMT: COMMON NORMALS: normocephalic and atraumatic HEAD & SCALP: normal to inspection, normocephalic and atraumatic Chest: COMMONS NORMALS: normal inspection of the chest and normal palpation of entire chest wall Resp: COMMON NORMALS: normal respiratory effort and clear to auscultation bilaterally AUSCULTATION: clear to auscultation bilaterally OTHER: hypoxia requring 2L Cardio: COMMON NORMALS: regular rhythm RATE: tachycardic RHYTHM: regular rhythm GI: COMMON NORMALS: Normal to inspection, nondistended, normoactive bowel sounds present, Soft to palpation, non-tender, No hepatosplenomegaly present and no masses AUSCULTATION: Yes normoactive bowel sounds PALPATION: Yes Soft to palpation, No Tenderness to palpation present (GI), No Guarding due to palpation present (GI), No Rigid due to palpation and Yes No hepatosplenomegaly present : COMMON NORMALS: Yes no CVA tenderness BLADDER/KIDNEY EXAM: Yes no CVA tenderness Back/Pelvis: COMMON NORMALS: no CVA tenderness Extremity: COMMON NORMALS: normal to inspection, capillary refill normal, no joint enlargement, no clubbing, cyanosis or edema, no calf tenderness and no pedal edema GENERAL: Yes normal exam except as noted Neuro: SUNITA COMA SCALE: document GCS findings [place] coma scale eye opening: Spontaneous [place] coma scale verbal response: Orientated Sunita coma scale motor response: Obey commands [place] coma scale total score: 15 SENSORIUM/ORIENTATION: Yes alert, Yes oriented to person and Yes oriented to place Skin: COMMON NORMALS: no rashes or lesions noted GENERAL SKIN EXAM: no rashes or lesions noted Course Consultations: Consultation #1: Dr. Chu-accepts admission Vital Signs: Vital signs: Vital Signs Temperature 101 F H 09/16/22 22:41 Pulse Rate 78 09/17/22 01:28 Respiratory Rate 27 H 09/17/22 01:28 Blood Pressure 103/61 09/17/22 01:28 Pulse Oximetry 93 09/17/22 01:28 Oxygen Delivery Me thod 09/17/22 01:28 Oxygen Flow Rate 4 09/17/22 01:28 MDM - Female Medical Decision Making Upon initial examination patient is oriented to some questioning but other questioning responds with illogical and disorganized speech. Vital signs at time of arrival and during my initial examination showing BP of 145/58, tac hycardia 107, fever 101.0, and satting 88% on room air. She was placed on 2L and satting now at 93%. Blood work showing a white count of 18.6 with a lactate of 3.6. She is got acute kidney injury with a BUN/Cr of 47/2.7. CRP is significantly elevated at 217. UA showing overwhelming evidence of UTI with hazy appearance, 2+ blood, nitrates, 2+ leuks, 15-25 WBCs, and 4+ bacteria. Kidneys on CT imaging look normal. CXR essentially normal but CT imaging showing patchy bibasilar atelectasis versus infiltrate. She was started on IV Rocephin and Azithromycin initially to provide for urologic and pulmonary coverage. I did later look at previous sensitivity report and back in February 2022 she grew E. Coli ESBL so I spoke to hospitalist about the need to change these. Nursing staff alerted me during patient's visit that her BP has sharply declined and now 60s/40s. Patient initially had a liter of fluids ordered when she was in the waiting room however there was a delay on these being hung. She had an additional liter ordered after meeting sepsis criteria. Fluids now on pressure bags and Dr. Rao in room with patient. Plan will be for Levophed and central line (please see his note for procedure and critical care time). I have spoken to Dr. Chu who will admit patient. Lab Data 09/16/22 23:29 09/16/22 23:29 Radiology Impressions Abdomen/Pelvis CT 09/16/22 23:57 IMPRESSION: 1. Negative for focal acute inflammatory process in the abdomen or pelvis. 2. Gallbladder is somewhat distended, ultrasound could further evaluate this. 3. Left adrenal 14 mm nodule suspected, indeterminate, dedicated adrenal imaging could further evaluate this. 4. Diverticulosis without diverticulitis. 5. Constipation. 6. Surgical hardware in the lumbar spine. 7. Right hip arthroplasty changes. 8. Patchy bibasilar right greater than left atelectasis versus infiltrate. 9. Small hiatal hernia. Chest X-Ray 09/17/22 01:12 IMPRESSION: 1. Right central venous catheter with tip approaching the atrial junction. 2. Mild cardiomegaly and pulmonary vascular congestion suspected. 3. New right upper lobe minimal airspace opacifications suspected. Laboratory Results WBC 18.6 10^3/uL (4.0-10.0) H 09/16/22: RBC 4.14 10^6/uL (4.1-5.3) 09/16/22: Hgb 11.6 g/dL (11.5-15.3) 09/16/22: Hct 37.0 % (37.0-47.0) 09/16/22: MCV 89.4 fl (81-99) 09/16/22: MCH 28.0 pg (28.0-34.0) 09/16/22: MCHC 31.4 g/dL (30.0-36.0) 09/16/22: RDW 14.5 % (12.1-15.1) 09/16/22: Plt Count 229 10^3/cmm (130-400) 09/16/22: MPV 10.1 fL (7.4-10.4) 09/16/22: Neut % (Auto) 90.2 % 09/16/22: Lymph % (Auto) 2.1 % 09/16/22: [place] % (Auto) 3.9 % 09/16/22: Eos % (Auto) 0.5 % 09/16/22: Baso % (Auto) 0.2 % 09/16/22: Neut # (Auto) 16.80 10^3/uL (1.8-7.7) H 09/16/22 23: Lymph # (Auto) 0.4 10^3/uL (0.8-4.8) L 09/16/22: [place] # (Auto) 0.7 10^3/uL (0.2-0.9) 09/16/22: Eos # (Auto) 0.1 10^3/uL (0.0-0.8) 09/16/22: Baso # (Auto) 0.0 10^3/uL (0.0-0.1) 09/16/22 Nucleated RBC % (auto) 0 % 09/16/22 Nucleated RBCs # 0.0 /100WBC 09/16/22 Sodium 136 mmol/L (136-145) 09/16/22 Potassium 4.3 mmol/L (3.5-5.1) 09/16/22: Chloride 100 mmol/L (98-107) 09/16/22: Carbon Dioxide 20 mmol/L (22-29) L 09/16/22 Anion Gap 20.3 (5-19) H 09/16/22: BUN 47 mg/dL (8-23) H 09/16/22: Creatinine 2.7 mg/dL (0.5-0.9) H 09/16/22 GFR Calculation Not Reportable 09/16/22 Glucose 146 mg/dL (65-115) H 09/16/22: Calculated Osmolality 297 mOsm/kg (285-295) H 09/16/22: Lactic Acid 3.6 mmol/L (0.5-2.2) H 09/16/22: Calcium 9.3 mg/dL (8.5-10.5) 09/16/22 Total Bilirubin 0.8 mg/dL (0.15-1.2) 09/16/22: AST 15 U/L (0-32) 09/16/22 ALT 9 U/L (0-33) 09/16/22: Alkaline Phosphatase 170 U/L (35-105) H 09/16/22: C-Reactive Protein 217.0 mg/L (0.0-4.9) H 09/16/22 23:29 Total Protein 7.1 g/dL (6.6-8.7) 09/16/22 23:29 Albumin 3.8 g/dL (3.5-5.2) 09/16/22 23:29 Globulin 3.3 g/dL (1.3-4.6) 09/16/22 23:29 Urine Color Yellow (Yellow) 09/17/22 00:05 Urine Appearance Sl hazy (CLEAR) A 09/17/22 00:05 Urine pH 5 (5-7) 09/17/22 00:05 Ur Specific [place] 1.015 (1.005-1.030) 09/17/22 00:05 Urine Protein 3+ (Negative) H 09/17/22 00:05 Urine Glucose (UA) Norm (Normal) 09/17/22 00:05 Urine Ketones Negative (Negative) 09/17/22 00:05 Urine Blood 2+ (Negative) H 09/17/22 00:05 Urine Nitrate Positive (Negative) H 09/17/22 00:05 Urine Bilirubin Neg (Negative) 09/17/22 00:05 Urine Urobilinogen Neg mg/dL (Negative) 09/17/22 00:05 Ur Leukocyte Esterase 2+ (Negative) H 09/17/22 00:05 Urine RBC 5-10 /hpf (0-2) H 09/17/22 00:05 Urine WBC 15-25 /hpf (0-5) H 09/17/22 00:05 Ur Squamous Epith Cells None /hpf (0-5) 09/17/22 00:05 Amorphous Sediment Not Reportable 09/17/22 00:05 Urine Bacteria 4+ /hpf (NONE) H 09/17/22 00:05 Discharge Plan Discharge Patient Disposition: Admitted As Inpatient Clinical Impression: Urinary tract infection Sepsis Qualifiers: Sepsis acute organ dysfunction status: with acute organ dysfunction Severe sepsis acute organ dysfunction type: unspecified Severe sepsis shock status: with septic shock Condition: Stable Coding Level of Care Code ED Medical Office Technician for Chg Fwd Documented by User: Frederic Rao MD 09/17/22 02:14 HPI - Female Genitourinary General: Chief complaint: Urogenital-Female Stated complaint: UTI Infections Time Seen by Provider: 09/16/22 22:45 [facility] ED PFSH: Medical History Hyperlipidemia Hypothyroidism UTI (urinary tract infection) Social History Smoking and tobacco status: never smoked Alcohol intake: never Physical Exam Neuro: SUNITA COMA SCALE: document GCS findings [place] coma scale total score: 15 Procedures Central Line Placement Right IJ: Time Out Performed: Yes Patient Placed on Monitor/Pulse Ox: Yes Prep: mask, gown and gloves Central Line Prep: Chlorhexidine scrub Local Anesthetic: lidocaine 1% Amount of anesthesia used (mL): 3 Ultrasound Used for Placement: Yes Central Line Lumen Inserted: triple Post Procedure: sutured in place, good blood return and all ports aspirated, flushed, capped Post Procedure X-Ray: tip of catheter in good position and no pneumothorax seen Patient Tolerated Procedure: well Complications: none Course Vital Signs: Vital signs: Vital Signs Temperature 101 F H 09/16/22 22:41 Pulse Rate 78 09/17/22 01:28 Respiratory Rate 27 H 09/17/22 01:28 Blood Pressure 103/61 09/17/22 01:28 Pulse Oximetry 93 09/17/22 01:28 Oxygen Delivery Me thod 09/17/22 01:28 Oxygen Flow Rate 4 09/17/22 01:28 MDM - Female Medical Decision Making Upon initial examination patient is oriented to some questioning but other questioning responds with illogical and disorganized speech. Vital signs at time of arrival and during my initial examination showing BP of 145/58, tachycar dioni 107, fever 101.0, and satting 88% on room air. She was placed on 2L and satting now at 93%. Blood work showing a white count of 18.6 with a lactate of 3.6. She is got acute kidney injury with a BUN/Cr of 47/2.7. CRP is significantly elevated at 217. UA showing overwhelming evidence of UTI with hazy appearance, 2+ blood, nitrates, 2+ leuks, 15-25 WBCs, and 4+ bacteria. Kidneys on CT imaging look normal. CXR essentially normal but CT imaging showing patchy bibasilar atelectasis versus infiltrate. She was started on IV Rocephin and Azithromycin initially to provide for urologic and pulmonary coverage. I did later look at previous sensitivity report and back in February 2022 she grew E. Coli ESBL so I spoke to hospitalist about the need to change these. Nursing staff alerted me during patient's visit that her BP has sharply declined and now 60s/40s. Patient initially had a liter of fluids ordered when she was in the waiting room however there was a delay on these being hung. She had an additional liter ordered after meeting sepsis criteria. Fluids now on pressure bags and Dr. Rao in room with patient. Plan will be for Levophed and central line (please see his note for procedure and critical care time). I have spoken to Dr. Chu who will admit patient. I saw patient with above midlevel blood pressure here originally normal she did become hypotensive with septic shock she has a UTI possible pneumonia with elevated white count and lactate patient is given fluid bolus along with IV antibiotics blood pressure improved on Levophed will admit patient to ICU. Lab Data 09/16/22 23:29 09/16/22 23:29 Radiology Impressions Abdomen/Pelvis CT 09/16/22 23:57 IMPRESSION: 1. Negative for focal acute inflammatory process in the abdomen or pelvis. 2. Gallbladder is somewhat distended, ultrasound could further evaluate this. 3. Left adrenal 14 mm nodule suspected, indeterminate, dedicated adrenal imaging could further evaluate this. 4. Diverticulosis without diverticulitis. 5. Constipation. 6. Surgical hardware in the lumbar spine. 7. Right hip arthroplasty changes. 8. Patchy bibasilar right greater than left atelectasis versus infiltrate. 9. Small hiatal hernia. Chest X-Ray 09/17/22 01:12 IMPRESSION: 1. Right central venous catheter with tip approaching the atrial junction. 2. Mild cardiomegaly and pulmonary vascular congestion suspected. 3. New right upper lobe minimal airspace opacifications suspected. Laboratory Results WBC 18.6 10^3/uL (4.0-10.0) H 09/16/22 23:29 RBC 4.14 10^6/uL (4.1-5.3) 09/16/22 Hgb 11.6 g/dL (11.5-15.3) 09/16/22 Hct 37.0 % (37.0-47.0) 09/16/22 MCV 89.4 fl (81-99) 09/16/22 MCH 28.0 pg (28.0-34.0) 09/16/22 MCHC 31.4 g/dL (30.0-36.0) 09/16/22 RDW 14.5 % (12.1-15.1) 09/16/22 Plt Count 229 10^3/cmm (130-400) 09/16/22 MPV 10.1 fL (7.4-10.4) 09/16/22 Neut % (Auto) 90.2 % 09/16/22 Lymph % (Auto) 2.1 % 09/16/22 [place] % (Auto) 3.9 % 09/16/22 Eos % (Auto) 0.5 % 09/16/22 Baso % (Auto) 0.2 % 09/16/22 Neut # (Auto) 16.80 10^3/uL (1.8-7.7) H 09/16/22 Lymph # (Auto) 0.4 10^3/uL (0.8-4.8) L 09/16/22 [place] # (Auto) 0.7 10^3/uL (0.2-0.9) 09/16/22 Eos # (Auto) 0.1 10^3/uL (0.0-0.8) 09/16/22 Baso # (Auto) 0.0 10^3/uL (0.0-0.1) 09/16/22 Nucleated RBC % (auto) 0 % 09/16/22 Nucleated RBCs # 0.0 /100WBC 09/16/22 Sodium 136 mmol/L (136-145) 09/16/22 Potassium 4.3 mmol/L (3.5-5.1) 09/16/22: Chloride 100 mmol/L (98-107) 09/16/22: Carbon Dioxide 20 mmol/L (22-29) L 09/16/22 Anion Gap 20.3 (5-19) H 09/16/22: BUN 47 mg/dL (8-23) H 09/16/22: Creatinine 2.7 mg/dL (0.5-0.9) H 09/16/22 GFR Calculation Not Reportable 09/16/22: Glucose 146 mg/dL (65-115) H 09/16/22: Calculated Osmolality 297 mOsm/kg (285-295) H 09/16/22: Lactic Acid 3.6 mmol/L (0.5-2.2) H 09/16/22 Calcium 9.3 mg/dL (8.5-10.5) 09/16/22 Total Bilirubin 0.8 mg/dL (0.15-1.2) 09/16/22: AST 15 U/L (0-32) 09/16/22: ALT 9 U/L (0-33) 09/16/22: Alkaline Phosphatase 170 U/L (35-105) H 09/16/22 C-Reactive Protein 217.0 mg/L (0.0-4.9) H 09/16/22: Total Protein 7.1 g/dL (6.6-8.7) 09/16/22: Albumin 3.8 g/dL (3.5-5.2) 09/16/22: Globulin 3.3 g/dL (1.3-4.6) 09/16/22: Urine Color Yellow (Yellow) 09/17/22 00:05 Urine Appearance Sl hazy (CLEAR) A 09/17/22 00:05 Urine pH 5 (5-7) 09/17/22 00:05 Ur Specific [place] 1.015 (1.005-1.030) 09/17/22 00:05 Urine Protein 3+ (Negative) H 09/17/22 00:05 Urine Glucose (UA) Norm (Normal) 09/17/22 00:05 Urine Ketones Negative (Negative) 09/17/22 00:05 Urine Blood 2+ (Negative) H 09/17/22 00:05 Urine Nitrate Positive (Negative) H 09/17/22 00:05 Urine Bilirubin Neg (Negative) 09/17/22 00:05 Urine Urobilinogen Neg mg/dL (Negative) 09/17/22 00:05 Ur Leukocyte Esterase 2+ (Negative) H 09/17/22 00:05 Urine RBC 5-10 /hpf (0-2) H 09/17/22 00:05 Urine WBC 15-25 /hpf (0-5) H 09/17/22 00:05 Ur Squamous Epith Cells None /hpf (0-5) 09/17/22 00:05 Amorphous Sediment Not Reportable 09/17/22 00:05 Urine Bacteria 4+ /hpf (NONE) H 09/17/22 00:05 Discharge Plan Discharge Patient Disposition: Admitted As Inpatient Clinical Impression: Urinary tract infection Sepsis Qualifiers: Sepsis acute organ dysfunction status: with acute organ dysfunction Severe sepsis acute organ dysfunction type: unspecified Severe sepsis shock status: with septic shock Condition: Stable Coding Level of Care Code ED Medical Office Technician for Suyapa Yun
[2022-09-16 23:53] LABS: Basophils % 0.2 %; Eosinophils # 0.1 10^3/uL (0.0-0.8); Eosinophils % 0.5 %; Hemoglobin 11.6 g/dL (11.5-15.3); Lymphocytes # 0.4 10^3/uL (0.8-4.8); Lymphocytes % 2.1 %; Mean Corpuscular HGB Conc 31.4 g/dL (30.0-36.0); Mean Corpuscular Volume 89.4 fl (81-99); Mean Platelet Volume 10.1 fL (7.4-10.4); Monocytes # 0.7 10^3/uL (0.2-0.9); Monocytes % 3.9 %; Neutrophils % 90.2 %; Nucleated Red Blood Cells % 0 %; Platelet Count 229 10^3/cmm (130-400); Red Blood Count 4.14 10^6/uL (4.1-5.3); Red Cell Distribution Width 14.5 % (12.1-15.1); White Blood Count 18.6 10^3/uL (4.0-10.0)
--- NOTE | 2022-09-16 23:57 | CTR_ITS ---
PROCEDURE INFORMATION: Exam: CT Abdomen And Pelvis Without Contrast Exam date and time: 09/17/2022 12:13 AM Age: 82 years old Clinical indication: Fever and nausea and vomiting; Prior surgery; Surgery type: Breast. Lumbar fusion. [place]; Patient HX: C/O back pain with n/v and fever. History of breast cancer. ; Additional info: Flank/back pain, UTI, sepsis TECHNIQUE: Imaging protocol: Computed tomography of the abdomen and pelvis without contrast. Radiation optimization: All CT scans at this facility use at least one of these dose optimization techniques: automated exposure control; mA and/or kV adjustment per patient size (includes targeted exams where dose is matched to clinical indication); or iterative reconstruction. REPORTING DATA: Count of CT and Cardiac NM exams in prior 12 months: This patient has received [address] and 0 known cardiac nuclear medicine studies in the 12 months prior to the current study. COMPARISON: CT kidney stone [id number] 02/25/2022 1:43 PM RADIATION DOSE METRICS: Total DLP (mGy-cm): 561.84 FINDINGS: Lungs: Patchy bibasilar right greater than left atelectasis versus infiltrate. Diaphragm: Small hiatal hernia. Liver: Normal. No mass. Gallbladder and bile ducts: Gallbladder is somewhat distended, ultrasound could further evaluate this. Pancreas: Normal. No ductal dilation. Spleen: Normal. No splenomegaly. Adrenal glands: Left adrenal 14 mm nodule suspected, indeterminate, dedicated adrenal imaging could further evaluate this. Kidneys and ureters: Normal. No hydronephrosis. Stomach and bowel: Diverticulosis without diverticulitis. Constipation. Appendix: No evidence of appendicitis. Intraperitoneal space: Unremarkable. No free air. No significant fluid collection. Vasculature: Unremarkable. No abdominal aortic aneurysm. Lymph nodes: Unremarkable. No enlarged lymph nodes. Urinary bladder: Unremarkable as visualized. Reproductive: Unremarkable as visualized. Bones/joints: Surgical hardware in the lumbar spine. Right hip arthroplasty changes. Soft tissues: Unremarkable. CT/CT kidney stone [id number] IMPRESSION: 1. Negative for focal acute inflammatory process in the abdomen or pelvis. 2. Gallbladder is somewhat distended, ultrasound could further evaluate this. 3. Left adrenal 14 mm nodule suspected, indeterminate, dedicated adrenal imaging could further evaluate this. 4. Diverticulosis without diverticulitis. 5. Constipation. 6. Surgical hardware in the lumbar spine. 7. Right hip arthroplasty changes. 8. Patchy bibasilar right greater than left atelectasis versus infiltrate. 9. Small hiatal hernia.
[2022-09-17] VITALS (57 sets, daily range): BP systolic 58–142; BP diastolic 40–83; PULSE 71–106; RESP 16–34; TEMP 36.7–37.1; O2SAT 82–98
[2022-09-17 00:33] LABS: Lactic Sepsis W/Reflex 3.6 mmol/L (0.5-2.2)
[2022-09-17 00:34] LABS: Alanine Aminotransferase 9 U/L (0-33); Albumin Level 3.8 g/dL (3.5-5.2); Alkaline Phosphatase 170 U/L (35-105); Anion Gap 20.3 (5-19); Aspartate Amino Transferase 15 U/L (0-32); Blood Urea Nitrogen 47 mg/dL (8-23); Calcium 9.3 mg/dL (8.5-10.5); Carbon Dioxide 20 mmol/L (22-29); Chloride 100 mmol/L (98-107); Globulin 3.3 g/dL (1.3-4.6); Glucose 146 mg/dL (65-115); Osmolality Calculated 297 mOsm/kg (285-295); Potassium 4.3 mmol/L (3.5-5.1); Sodium 136 mmol/L (136-145); Total Bilirubin 0.8 mg/dL (0.15-1.2); Total Protein 7.1 g/dL (6.6-8.7)
[2022-09-17] MEDS: acetaminophen 325 mg Tablet 650 MG PO (00:43)
[2022-09-17] MEDS: cefTRIAXone 1,000 MG in sodium chloride 0.9% (plus) 50 ML 100 MG IV (00:43)
[2022-09-17] MEDS: sodium chloride 0.9% 1,000 ML 999 ML IV ×2 (00:44→01:00)
[2022-09-17] MEDS: azithromycin 500 MG in sodium chloride 0.9% 250 ML 250 MG IV (00:48)
[2022-09-17 00:55] LABS: Add Urine Microscopic? YES; Bilirubin Urine Neg (Negative); Blood Urine 2+ (Negative); Glucose Urine UA Norm (Normal); Ketones Urine Negative (Negative); Leukocyte Esterase Urine 2+ (Negative); Nitrate Urine Positive (Negative); Protein Urine 3+ (Negative); Specific Gravity, Urine 1.015 (1.005-1.030); Urine Appearance SL Hazy (CLEAR); Urine Color Yellow (Yellow); Urobilinogen Urine Neg (Negative); pH Urine 5 (5-7)
[2022-09-17 00:56] LABS: Add Urine Culture? Yes; Bacteria Urine 4+ /hpf; WBC Urine 15-25 /hpf (0-5)
--- NOTE | 2022-09-17 01:12 | XRR_ITS ---
PROCEDURE INFORMATION: Exam: XR Chest Exam date and time: 09/17/2022 1:30 AM Age: 82 years old Clinical indication: Other vascular access device placement or adjustment; Central line, tunnelled; Prior surgery; Surgery type: Breast. Shoulder. Patient HX: Check S/P central line placement TECHNIQUE: Imaging protocol: Radiologic exam of the chest. Views: 1 view. COMPARISON: CR (CHEST, ) 09/16/2022 11:13 PM FINDINGS: Tubes, catheters and devices: Right central venous catheter with tip approaching the atrial junction. Lungs: New right upper lobe minimal airspace opacifications suspected. Pleural spaces: Unremarkable. No pleural effusion. No pneumothorax. Heart/Mediastinum: Mild cardiomegaly and pulmonary vascular congestion suspected. Bones/joints: Unremarkable. XR/XR chest 1V portable [id number] IMPRESSION: 1. Right central venous catheter with tip approaching the atrial junction. 2. Mild cardiomegaly and pulmonary vascular congestion suspected. 3. New right upper lobe minimal airspace opacifications suspected.
[2022-09-17] MEDS: sodium chloride 0.9% 500 ML 999 ML IV (01:20)
[2022-09-17 01:38] LABS: Reflex Lactate Order REFLEX LACTIC ORDERD
--- NOTE | 2022-09-17 01:45 | PM.HP ---
Providers/Chief Complaint Primary Care Provider: Tremayne Sweet Chief Complaint: UTI Infections History of Present Illness Darleen Sifuentes is a 82 year old female to the hospital after failing outpatient antibiotic therapy for UTI. Patient has been given 2 antibiotics by PCP which she has failed. Today she is febrile and confused that prompted her visit to the ER. In the ER she was diagnosed septic shock, central line was placed, she was started on antibiotics and septic bolus was administered. White count 18,000 with fever, tachycardia high lactic acid with endorgan damage creatinine 2.7. CT abdomen pelvis did not show any obstructive uropathy, gallbladder is distended Constipation Bibasilar opacities and lung, COVID-19 test has been requested Patient is in septic shock requiring Levophed She will go to ICU Patient is awake and alert She is full code Family is at the bedside History has been taken from the patient and the family As per the family patient has been very fatigued and lethargic her p.o. intake has been very poor Patient experienced 1 episode of emesis in the ER As per the family she was confused and febrile this morning that prompted her visit Review of Systems Const: Reports: fever(s) and chills Eyes: Denies: change in vision ENMT: Denies: throat pain Card: Denies: chest pain Resp: Denies: dyspnea GI: Reports: nausea : Reports: flank pain and difficulty voiding Musc: Denies: neck pain Skin/Breast: Denies: rash Neuro: Denies: headache(s) Psych: Reports: anxiety Endo: Reports: polyuria Teja/Lymph: Denies: easy bruising All/Imm: Denies: urticaria Medications/Allergies Home Medications Medication Instructions Recorded Confirmed Last Taken Type atorvastatin 10 mg tablet 10 mg PO DAILY 02/25/22 02/25/22 02/25/22 History duloxetine 60 mg capsule,delayed 120 mg PO DAILY 02/25/22 02/25/22 02/25/22 History release furosemide 40 mg tablet 40 mg PO DAILY 02/25/22 02/25/22 02/25/22 History gabapentin 300 mg capsule 300 mg PO BID 02/25/22 02/25/22 02/25/22 History hydralazine 25 mg tablet 25 mg PO Q8H 02/25/22 02/25/22 02/25/22 History levothyroxine 25 mcg tablet 25 mcg PO DAILY 02/25/22 02/25/22 02/25/22 History meloxicam 7.5 mg tablet 7.5 mg PO DAILY 02/25/22 02/25/22 02/25/22 History milnacipran 25 mg tablet (Savella) 25 mg PO BID 02/25/22 02/25/22 02/25/22 History oxycodone 5 mg tablet 10 mg PO BID PRN Pain 02/25/22 02/25/22 02/25/22 History potassium chloride 10 mEq 10 meq PO DAILY 02/25/22 02/25/22 02/25/22 History tablet,extended release trazodone 50 mg tablet 50 mg PO BEDTIME 02/25/22 02/25/22 02/24/22 History verapamil 120 mg 24 hr 120 mg PO DAILY 02/25/22 02/25/22 02/25/22 History capsule,extended release Allergies Allergy/AdvReac Type Severity Reaction Status Date / Time No Known Allergies Allergy Verified 09/16/22 22:56 PFSH Acute PFSH: Medical History Hyperlipidemia Hypothyroidism UTI (urinary tract infection) Social History Smoking and tobacco status: never smoked Alcohol intake: never Vitals/I&O/Wt Last Vital Signs Temp 101 F H 09/16/22 22:41 Pulse 107 H 09/16/22 22:41 Resp 18 09/16/22 22:41 BP 145/58 09/16/22 22:41 Pulse Ox 88 L 09/16/22 22:41 O2 Del Method 09/16/22 22:41 09/16/22 09/16/22 09/17/22 14:59 22:59 06:59 Intake Total 2049 Balance 2049 Weight last 48 hrs Weight 72.575 kg Physical Exam Narrative: Patient is awake and alert No signs of confusion Able to answer my question Alert x3 GCS 15 Family at the bedside Mild coarse tremors S1, S2 tachycardia Clinically dehydrated Abdomen soft Nonfocal neuro exam Currently doing well on 3 L nasal cannula Data 09/16/22 23:29 09/16/22 23:29 Micro: Microbiology 09/16/22 23:29 Blood Culture - Preliminary Blood SPECIMEN COLLECTED 09/16/22 23:29 Blood Culture - Preliminary Blood SPECIMEN COLLECTED A&P Assessment and plan (1) ESBL (extended spectrum beta-lactamase) producing bacteria infection: (2) Septic shock: (3) Sepsis: Qualifiers: Sepsis acute organ dysfunction status: with acute organ dysfunction Severe sepsis acute organ dysfunction type: unspecified Severe sepsis shock status: with septic shock (4) Urinary tract infection: (5) Hypothyroidism: (6) Acute kidney injury superimposed on chronic kidney disease: Plan Septic shock Related to UTI Endorgan damage with high creatinine Lactic acid tachycardia fever and tachypnea Start meropenem history of ESBL UTI No signs of perinephric abscess or pyelonephritis Failed outpatient therapy Admit to ICU Start Levophed Patient received septic bolus Repeat lactic acid Blood cultures obtained Hypothyroidism: Continue levothyroxine Acute on chronic kidney disease Monitor kidney function No signs of obstructive uropathy Likely nephrotoxic agents provided and sepsis Patient most likely will need 2 weeks of IV antibiotics after finalized urine and blood cultures Central line placed by the ER physician on admission Sepsis induced encephalopathy: Resolved at the time of evaluation she was confused that prompted her visit in the ER She is full code Regular diet Hold antihypertensive regimen DVT prophylaxis on board Bibasilar infiltrate on imaging, requested COVID PCR which was negative Patient lives at home Will request PT once she is more stable History taken from the patient and the family who is at the bedside Previous records reviewed ESBL Attestations Medical Necessity Statement*: More than 2 midnights anticipated Diagnoses ESBL (extended spectrum beta-lactamase) producing bacteria infection A49.9; Z16.12 Septic shock A41.9; R65.21 Sepsis A41.9 Sepsis acute organ dysfunction status: with acute organ dysfunction Severe sepsis acute organ dysfunction type: unspecified Severe sepsis shock status: with septic shock Urinary tract infection N39.0 Hypothyroidism E03.9 Acute kidney injury superimposed on chronic kidney disease N17.9; N18.9
[2022-09-17] MEDS: sodium chloride 0.9% 1,000 ML 75 ML IV ×2 (02:21→17:58)
[2022-09-17 02:22] LABS: Adenovirus Not Detected (NOT DETECT); Chlamydia Pneumoniae Not Detected (NOT DETECT); Coronavirus 229E,HKU1,NL63,OC4 Not Detected (NOT DETECT); Human Metapneumovirus Not Detected (NOT DETECT); Human Rhinovirus/Enterovirus Not Detected (NOT DETECT); Influenza A Not Detected (NOT DETECT); Influenza A H1 Not Detected (NOT DETECT); Influenza A H1-2009 Not Detected (NOT DETECT); Influenza A H3 Not Detected (NOT DETECT); Influenza B Not Detected (NOT DETECT); Mycoplasma Pneumoniae Not Detected (NOT DETECT); Parainfluenza Virus Type 1 Not Detected (NOT DETECT); Parainfluenza Virus Type 2 Not Detected (NOT DETECT); Parainfluenza Virus Type 3 Not Detected (NOT DETECT); Parainfluenza Virus Type 4 Not Detected (NOT DETECT); Respiratory Syncytial Virus A Not Detected (NOT DETECT); Respiratory Syncytial Virus B Not Detected (NOT DETECT); SARS-COV-2 Not Detected (NOT DETECT)
[2022-09-17 02:24] LABS: Procalcitonin 87.66 ng/mL (0-0.5)
--- NOTE | 2022-09-17 02:24 | PC.NURSE ---
0100- bp dropped to 70s. Mid level notified. Dr lara aware and gave orders for second line, pressure bad 2l ns. Central line placed. LEvo started. Pressures maintained and pt stabilized at time.
[2022-09-17 02:39] LABS: Hematocrit 31.7 % (37.0-47.0); Hemoglobin 9.9 g/dL (11.5-15.3); Mean Corpuscular HGB Conc 31.2 g/dL (30.0-36.0); Mean Corpuscular Volume 89.8 fl (81-99); Mean Platelet Volume 10.3 fL (7.4-10.4); Platelet Count 201 10^3/cmm (130-400); Red Blood Count 3.53 10^6/uL (4.1-5.3); Red Cell Distribution Width 14.7 % (12.1-15.1); White Blood Count 24.4 10^3/uL (4.0-10.0)
[2022-09-17 02:43] LABS: Lactic Acid level (Lactate) 2.2 mmol/L (0.5-2.2)
[2022-09-17 02:49] LABS: Anion Gap 14.1 (5-19); Blood Urea Nitrogen 44 mg/dL (8-23); C Reactive Protein 191.1 mg/L (0.0-4.9); Calcium 7.8 mg/dL (8.5-10.5); Carbon Dioxide 20 mmol/L (22-29); Chloride 107 mmol/L (98-107); Glucose 110 mg/dL (65-115); Magnesium 1.7 mg/dL (1.7-2.3); Osmolality Calculated 296 mOsm/kg (285-295); Phosphorus 1.6 mg/dL (2.5-4.5); Potassium 4.1 mmol/L (3.5-5.1); Sodium 137 mmol/L (136-145)
[2022-09-17 03:05] LABS: Slide Review Slide Review Perform
[2022-09-17 03:06] LABS: Absolute Neutrophil 22.7 10^3/cmm (1.4-6.5); Absolute Segmented Neutrophil 22.7 10/cmm (1.6-7.1); Eosinophils 0 %; Lymphocytes 1 %; Lymphocytes Absolute 0.2 10^3/cmm (1.2-3.4); Platelet Estimate Normal (Normal); Segmented Neutrophils 93 %; Total Cells Counted 100 (0-100)
[2022-09-17] MEDS: heparin 5,000 unit/mL INJ 1 mL 5000 UNIT SUBCUT ×2 (03:13→15:04)
[2022-09-17] MEDS: meropenem 2,000 MG in sodium chloride 0.9% (100 ml) 100 ML 200 MG IV (03:13)
[2022-09-17 05:21] LABS: ABG PH Result 7.35 (7.35-7.45); Arterial Blood Gas Hematocrit 28.9 % (37-47); Base Excess ABG -5.3 mmol/L (-2.0-2.0); Blood Gas Sample Site Brachial, right; HCO3 ABG 19.6 mmol/L (22-26)
[2022-09-17] MEDS: sennosides-docusate Tablet 1 TAB PO (08:07)
[2022-09-17] MEDS: levothyroxine 25 mcg Tablet PO (08:07)
[2022-09-17] MEDS: pantoprazole 40 mg SDV IVP ×2 (08:07→17:46)
--- NOTE | 2022-09-17 08:32 | PC.PHAR ---
pt states her daughter neto [phone] takes care of her medications-pt had brought in med bottles also-pt had ultram 50mg q6h prn bottle dated 07/02/22-compazine 5mg tid prn na dated 10/26/11 amoxil 500mg 4 cap before procedure dated 07/20/22-hydroxyzine hcl 10mg tid prn itching dated 12/20/20 and tizanidine 4mg q6h prn dated 07/02/22 daughter states the pt doesnt take those medications states she needs to throw them away and requested them not to be put in-neto states the pts mobic 7.5mg daily was dced a week ago ext shows last filled 08/11/22 90d/s-notes are made in the pharmacy comments
[2022-09-17 13:00] LABS: Blood Gas Allen Test Pos; Blood Gas Operator Identificat Anonymous
[2022-09-17 13:02] LABS: Blood Gas Sample Type CalVer
[2022-09-17 13:07] LABS: ABG PCO2 37.8 mmHg (35-45)
--- NOTE | 2022-09-17 17:17 | PM.MISC ---
Miscellaneous Note Purpose of Documentation: Overnight labs and H&P reviewed. Tmax 101 Fahrenheit overnight. Creatinine improving at 2.4 from 2.7. Pending blood and urine cultures. CT of the abdomen and pelvis negative for focal acute inflammatory process. Gallbladder noted to be distended, right upper quadrant ultrasound ordered. Chest x-ray shows mild airspace opacifications. Clinically appearing to be dehydrated therefore IV fluids have been continued. Patient is alert and awake, able to tell me her name, age, date of , fact that she is in [facility]. Remembers events from overnight in the ER. However somewhat tangential in conversation. Per family at bedside patient has been hallucinating intermittently. Likely related to metabolic encephalopathy from sepsis and uremia. Calculated creatinine clearance at 20, meropenem dose adjusted from 2 g IV every 8 hours to 500 mg IV every 8 hours. This may need to be adjusted further as creatinine clearance changes.
--- NOTE | 2022-09-17 17:21 | US_ITS ---
WS: [id number] RIGHT UPPER QUADRANT ULTRASOUND HISTORY: evaluate for cholecystitis COMPARISON: CT 09/17/2022 Liver: 13.7 cm in length. Normal size liver and echogenicity. No bile duct dilatation or mass. Portal Vein: Normal hepatopetal flow with monophasic waveform. Gallbladder: Normally distended gallbladder with no stones or wall thickening. CBD: 0.5 cm Pancreas: Obscured by bowel gas. Right kidney: 10.3 cm in length. Normal size and echogenicity. No hydronephrosis or mass. Aorta and IVC: Unremarkable abdominal aorta and IVC. No ascites. US/US liver [id number] IMPRESSION: 1. Normal gallbladder. No sludge or stones or wall thickening. No Paulson's sig n. 2. Liver is negative.
[2022-09-18] VITALS (19 sets, daily range): BP systolic 138–183; BP diastolic 77–101; PULSE 68–85; RESP 16–25; TEMP 36.7–37.2; O2SAT 92–98
[2022-09-18] MEDS: gabapentin 300 mg Capsule PO ×2 (00:34→05:41)
[2022-09-18] MEDS: heparin 5,000 unit/mL INJ 1 mL 5000 UNIT SUBCUT ×2 (01:38→13:55)
[2022-09-18 04:25] LABS: Basophils # 0.1 10^3/uL (0.0-0.1); Basophils % 0.2 %; Eosinophils % 0.1 %; Hematocrit 30.1 % (37.0-47.0); Hemoglobin 9.5 g/dL (11.5-15.3); Lymphocytes # 1.2 10^3/uL (0.8-4.8); Lymphocytes % 4.7 %; Mean Corpuscular HGB Conc 31.6 g/dL (30.0-36.0); Mean Corpuscular Hemoglobin 27.9 pg (28.0-34.0); Mean Corpuscular Volume 88.5 fl (81-99); Mean Platelet Volume 11.2 fL (7.4-10.4); Monocytes # 1.7 10^3/uL (0.2-0.9); Monocytes % 6.7 %; Neutrophils # 20.79 10^3/uL (1.8-7.7); Neutrophils % 81.4 %; Nucleated Red Blood Cells % 0 %; Platelet Count 188 10^3/cmm (130-400); Red Cell Distribution Width 14.7 % (12.1-15.1); White Blood Count 25.5 10^3/uL (4.0-10.0)
[2022-09-18 04:43] LABS: Alanine Aminotransferase 9 U/L (0-33); Albumin Level 2.8 g/dL (3.5-5.2); Alkaline Phosphatase 135 U/L (35-105); Anion Gap 15.5 (5-19); Aspartate Amino Transferase 17 U/L (0-32); Blood Urea Nitrogen 41 mg/dL (8-23); Calcium 8.3 mg/dL (8.5-10.5); Carbon Dioxide 19 mmol/L (22-29); Chloride 107 mmol/L (98-107); Globulin 2.7 g/dL (1.3-4.6); Glucose 87 mg/dL (65-115); Osmolality Calculated 293 mOsm/kg (285-295); Potassium 4.5 mmol/L (3.5-5.1); Sodium 137 mmol/L (136-145); Total Bilirubin 0.4 mg/dL (0.15-1.2); Total Protein 5.5 g/dL (6.6-8.7)
[2022-09-18 04:54] LABS: Slide Review Slide Review Perform
[2022-09-18] MEDS: duloxetine 60 mg Capsule 120 MG PO (05:40)
[2022-09-18] MEDS: sodium chloride 0.9% 1,000 ML 75 ML IV ×2 (05:41→19:57)
[2022-09-18] MEDS: levothyroxine 25 mcg Tablet PO (05:41)
[2022-09-18] MEDS: aspirin 81 mg EC Tablet PO (05:41)
[2022-09-18] MEDS: acetaminophen 500 mg Tablet PO (06:56)
[2022-09-18] MEDS: oxybutynin 5 mg Tablet PO ×2 (08:47→18:14)
[2022-09-18] MEDS: pantoprazole 40 mg SDV IVP ×2 (08:47→18:14)
[2022-09-18] MEDS: sennosides-docusate Tablet 1 TAB PO (08:47)
[2022-09-18] MEDS: oxyCODONE 5 mg IR Tab/Cap PO ×2 (12:38→20:07)
--- NOTE | 2022-09-18 14:12 | PC.NURSE ---
central line removed from the right internal jugular. cath tip intact. pressure held for approx 10 minutes. pt tolerated well. will closely monitor.
[2022-09-18] MEDS: gabapentin 300 mg Capsule 600 MG PO (18:14)
--- NOTE | 2022-09-18 19:02 | P.PN_ITS ---
Subjective Subjective: Reports doing better today. Is not as lethargic or confused. Denies any pain at this time. Vitals/I&O/Wt Last Vital Signs Temp 98.7 F 09/18/22 14:00 Pulse 84 09/18/22 18:00 Resp 25 H 09/18/22 18:00 BP 181/92 09/18/22 18:00 Pulse Ox 95 09/18/22 18:00 O2 Del Method 09/18/22 18:00 O2 Flow Rate 2 09/17/22 08:21 09/18/22 09/18/22 09/18/22 06:59 14:59 22:59 Intake Total 1228.75 / 2792.626 340 / 340 360 / 700 Output Total 1200 / 1800 1350 / 1350 Balance 28.75 / 992.626 340 / 340 -990 / -650 Weight last 48 hrs Weight 160 lb Physical Exam Narrative: General: Cooperative patient in no apparent distress. Well developed. HEENT: Normocephalic, Atraumatic. External ears normal. Nasal passages patent without drainage. MMM. Heart: RRR. Resp: LCTA. No respiratory distress, no use of accessory muscles. Abd: Soft, non-tender. Non-distended. Extremities: No edema. Skin: No rash or lesions on exposed areas. Urinary Catheter Management: [place]: Cath Placed During This Visit: yes Reason for Continuing Indwelling Catheter: Accurate Measurement of Urinary Output in Critically Ill Patients Urinary Catheter Date of Insertion: 09/17/22 Urinary Catheter Time of Insertion: 03:30 Data 09/18/22 03:16 09/18/22 03:16 Micro: Microbiology 09/17/22 00:05 Urine Culture - Preliminary Urine,Clean Catch Gram Negative Rods 09/16/22 23:29 Blood Culture - Preliminary Blood NEGATIVE TO DATE 09/16/22 23:29 Blood Culture - Preliminary Blood Escherichia coli 09/17/22 02:50 MRSA Culture - Final Nose A&P Assessment and plan (1) ESBL (extended spectrum beta-lactamase) producing bacteria infection: (2) Septic shock: (3) Sepsis: Qualifiers: Sepsis acute organ dysfunction status: with acute organ dysfunction Severe sepsis acute organ dysfunction type: unspecified Severe sepsis shock status: with septic shock (4) Urinary tract infection: (5) Hypothyroidism: (6) Acute kidney injury superimposed on chronic kidney disease: Plan 82-year-old female admitted for septic shock from urinary tract infection. Continue close ICU monitoring. Vitals are currently stable, pressures have improved. Is not requiring pressor s. Patient had lactic acidosis on admission, resolved. Blood and urine cultures are pending. Continue meropenem. Will de-escalate antibiotics once we have IDs and susceptibilities. Has had good urine output overnight. Repeat a.m. labs. Currently holding hypertensive medications, will resume these once required. Continue DVT prophylaxis. We will keep patient in the ICU for continued monitoring overnight, if she remains stable we will transfer her to the floor and start physical therapy. Previous records reviewed ESBL. Continue home medications for other chronic medical illnesses. Code Status: Full IVF: NS @ 75ml/hr DVT PPx: Heparin GI PPx: Protonix ABx: meropenem Diet: Cardiac Discharge plan : Home Attestations Medical Necessity Statement*: Will need continued hospitalization for man agement of sepsis, IV antibiotics, blood and urine cultures. Might be dealing, lately dealing Coding Level of Care Code Acute Code for Chg Fwd Moderate MDM includes number and complexity of problems actively addressed during encounter, amount and/or complexity of data reviewed/ordered and described risk of complication, morbidity or mortality of management as documented Diagnoses ESBL (extended spectrum beta-lactamase) producing bacteria infection A49.9; Z16.12 Septic shock A41.9; R65.21 Sepsis A41.9 Sepsis acute organ dysfunction status: with acute organ dysfunction Severe sepsis acute organ dysfunction type: unspecified Severe sepsis shock status: with septic shock Urinary tract infection N39.0 Hypothyroidism E03.9 Acute kidney injury superimposed on chronic kidney disease N17.9; N18.9
[2022-09-18] MEDS: hyDRALAzine 25 mg Tablet PO (20:07)
[2022-09-18] MEDS: trazodone 50 mg Tablet PO (20:08)
[2022-09-19] VITALS (18 sets, daily range): BP systolic 163–188; BP diastolic 75–117; PULSE 72–92; RESP 15–26; TEMP 36.4–37.2; O2SAT 90–96
[2022-09-19] MEDS: hyDRALAzine 25 mg Tablet PO ×3 (02:38→18:01)
[2022-09-19] MEDS: heparin 5,000 unit/mL INJ 1 mL 5000 UNIT SUBCUT ×2 (02:38→14:25)
[2022-09-19 04:06] LABS: Basophils % 0.2 %; Eosinophils # 0.1 10^3/uL (0.0-0.8); Eosinophils % 0.5 %; Hematocrit 33.1 % (37.0-47.0); Hemoglobin 10.3 g/dL (11.5-15.3); Lymphocytes # 1.2 10^3/uL (0.8-4.8); Lymphocytes % 6.2 %; Mean Corpuscular HGB Conc 31.1 g/dL (30.0-36.0); Mean Corpuscular Hemoglobin 27.8 pg (28.0-34.0); Mean Corpuscular Volume 89.2 fl (81-99); Mean Platelet Volume 11.9 fL (7.4-10.4); Monocytes # 1.3 10^3/uL (0.2-0.9); Monocytes % 6.5 %; Neutrophils # 16.49 10^3/uL (1.8-7.7); Neutrophils % 84.4 %; Nucleated Red Blood Cells % 0 %; Platelet Count 219 10^3/cmm (130-400); Red Blood Count 3.71 10^6/uL (4.1-5.3); Red Cell Distribution Width 14.6 % (12.1-15.1); White Blood Count 19.5 10^3/uL (4.0-10.0)
[2022-09-19 04:19] LABS: Alanine Aminotransferase 15 U/L (0-33); Alkaline Phosphatase 101 U/L (35-105); Anion Gap 15.6 (5-19); Aspartate Amino Transferase 21 U/L (0-32); Blood Urea Nitrogen 30 mg/dL (8-23); Calcium 8.8 mg/dL (8.5-10.5); Carbon Dioxide 20 mmol/L (22-29); Chloride 107 mmol/L (98-107); Glucose 100 mg/dL (65-115); Osmolality Calculated 292 mOsm/kg (285-295); Potassium 4.6 mmol/L (3.5-5.1); Sodium 138 mmol/L (136-145); Total Bilirubin 0.5 mg/dL (0.15-1.2)
[2022-09-19 05:08] LABS: Procalcitonin > 100.00 ng/mL (0-0.5)
[2022-09-19] MEDS: levothyroxine 25 mcg Tablet PO (05:44)
[2022-09-19] MEDS: duloxetine 60 mg Capsule 120 MG PO (05:44)
[2022-09-19] MEDS: gabapentin 300 mg Capsule PO (05:45)
[2022-09-19] MEDS: aspirin 81 mg EC Tablet PO (05:45)
[2022-09-19] MEDS: sennosides-docusate Tablet 1 TAB PO (08:38)
[2022-09-19] MEDS: oxybutynin 5 mg Tablet PO ×2 (08:38→18:01)
[2022-09-19] MEDS: pantoprazole 40 mg SDV IVP ×2 (08:39→18:01)
--- NOTE | 2022-09-19 14:17 | P.PN_ITS ---
Subjective Subjective: She reports feeling a lot better. Nursing reports she was able to get up some yesterday. She has had no pain overnight. Has been able to eat more. Vitals/I&O/Wt Last Vital Signs Temp 97.6 F 09/19/22 11:29 Pulse 76 09/19/22 11:29 Resp 15 09/19/22 11:29 BP 186/88 09/19/22 11:29 Pulse Ox 95 09/19/22 11:29 O2 Del Method 09/19/22 11:29 O2 Flow Rate 2 09/17/22 08:21 09/18/22 09/19/22 09/19/22 22:59 06:59 14:59 Intake Total 1360 / 1700 100 / 1800 1460 / 1460 Output Total 2350 / 2350 775 / 3125 Balance -990 / -650 -675 / -1325 1460 / 1460 Physical Exam Narrative: General: Cooperative patient in no apparent distress. Well developed. HEENT: Normocephalic, Atraumatic. External ears normal. Nasal passages patent without drainage. MMM. Heart: RRR. Resp: LCTA. No respiratory distress, no use of accessory muscles. Abd: Soft, non-tender. Non-distended. Extremities: No edema. Skin: No rash or lesions on exposed areas. Urinary Catheter Management: [place]: Cath Placed During This Visit: yes Reason for Continuing Indwelling Catheter: Accurate Measurement of Urinary Output in Critically Ill Patients Urinary Catheter Date of Insertion: 09/17/22 Urinary Catheter Time of Insertion: 03:30 Data 09/19/22 03:00 09/19/22 03:00 Micro: Microbiology 09/16/22 23:29 Blood Culture - Preliminary Blood Escherichia coli esbl 09/17/22 00:05 Urine Culture - Final Urine,Clean Catch Escherichia coli esbl A&P Assessment and plan (1) ESBL (extended spectrum beta-lactamase) producing bacteria infection: (2) Septic shock: (3) Sepsis: Qualifiers: Sepsis acute organ dysfunction status: with acute organ dysfunction Severe sepsis acute organ dysfunction type: unspecified Severe sepsis shock status: with septic shock (4) Urinary tract infection: (5) Hypothyroidism: (6) Acute kidney injury superimposed on chronic kidney disease: Plan 82-year-old female admitted for septic shock from urinary tract infection. Continue inpatient monitoring. We will transfer up to the floor today. Vitals remained stable. WBC count is trended down. Creatinine is down to 1.2. Continues to have a very elevated procalcitonin. CRP is down significantly. Patient had lactic acidosis on admission, resolved. Blood and urine cultures are pending. Urine culture currently shows ESBL sensitive to meropenem and we will continue. She will likely need several more days of IV antibiotics. Has had good urine output overnight. Repeat a.m. labs. Currently holding hypertensive medications, will resume these once required. Continue DVT prophylaxis. We will keep patient in the ICU for continued monitoring overnight, if she r emains stable we will transfer her to the floor and start physical therapy. Previous records reviewed ESBL. Continue home medications for other chronic medical illnesses. Code Status: Full IVF: NS @ 75ml/hr DVT PPx: Heparin GI PPx: Protonix ABx: meropenem Diet: Cardiac Discharge plan : Home Attestations Medical Necessity Statement*: Will need continued hospitalization for management of sepsis, IV antibiotics, blood and urine cultures. Might be dealing, lately dealing Coding Level of Care Code Acute Code for Chg Fwd Moderate MDM includes number and complexity of problems actively addressed during encounter, amount and/or complexity of data reviewed/ordered and described risk of complication, morbidity or mortality of management as documented Diagnoses ESBL (extended spectrum beta-lactamase) producing bacteria infection A49.9; Z16.12 Septic shock A41.9; R65.21 Sepsis A41.9 Sepsis acute organ dysfunction status: with acute organ dysfunction Severe sepsis acute organ dysfunction type: unspecified Severe sepsis shock status: with septic shock Urinary tract infection N39.0 Hypothyroidism E03.9 Acute kidney injury superimposed on chronic kidney disease N17.9; N18.9
[2022-09-19] MEDS: gabapentin 300 mg Capsule 600 MG PO (18:00)
[2022-09-19] MEDS: trazodone 50 mg Tablet PO (20:35)
[2022-09-19] MEDS: hyDRALAzine 20 mg/mL INJ 1 mL 10 MG IVP (21:08)
[2022-09-19] MEDS: oxyCODONE 5 mg IR Tab/Cap PO (22:35)
[2022-09-19] MEDS: meropenem 1,000 MG in sodium chloride 0.9% (plus) 50 ML 200 MG IV (22:36)
--- NOTE | 2022-09-19 23:02 | PC.NURSE ---
late entry 20:50. patient is hypertensive at 214/101, notified, new order recieved for hydralazine 10mg iv x one, administered as ordered.
[2022-09-20] VITALS (11 sets, daily range): BP systolic 144–208; BP diastolic 66–96; PULSE 63–82; RESP 15–20; TEMP 36.9–37.7; O2SAT 90–95
[2022-09-20] MEDS: heparin 5,000 unit/mL INJ 1 mL 5000 UNIT SUBCUT ×2 (02:54→15:32)
[2022-09-20] MEDS: hyDRALAzine 25 mg Tablet PO ×3 (02:54→18:26)
[2022-09-20 04:04] LABS: Basophils % 0.3 %; Eosinophils # 0.1 10^3/uL (0.0-0.8); Hematocrit 30.1 % (37.0-47.0); Hemoglobin 9.5 g/dL (11.5-15.3); Lymphocytes # 1.3 10^3/uL (0.8-4.8); Lymphocytes % 13.2 %; Mean Corpuscular HGB Conc 31.6 g/dL (30.0-36.0); Mean Corpuscular Hemoglobin 27.3 pg (28.0-34.0); Mean Corpuscular Volume 86.5 fl (81-99); Mean Platelet Volume 12.1 fL (7.4-10.4); Monocytes # 1.1 10^3/uL (0.2-0.9); Neutrophils # 7.28 10^3/uL (1.8-7.7); Neutrophils % 73.8 %; Nucleated Red Blood Cells % 0 %; Platelet Count 223 10^3/cmm (130-400); Red Blood Count 3.48 10^6/uL (4.1-5.3); Red Cell Distribution Width 14.4 % (12.1-15.1); White Blood Count 9.9 10^3/uL (4.0-10.0)
[2022-09-20 04:30] LABS: Alanine Aminotransferase 14 U/L (0-33); Alkaline Phosphatase 97 U/L (35-105); Anion Gap 14.8 (5-19); Aspartate Amino Transferase 18 U/L (0-32); Blood Urea Nitrogen 19 mg/dL (8-23); Calcium 8.8 mg/dL (8.5-10.5); Carbon Dioxide 21 mmol/L (22-29); Chloride 107 mmol/L (98-107); Globulin 2.7 g/dL (1.3-4.6); Glucose 85 mg/dL (65-115); Osmolality Calculated 290 mOsm/kg (285-295); Potassium 3.8 mmol/L (3.5-5.1); Sodium 139 mmol/L (136-145); Total Bilirubin 0.6 mg/dL (0.15-1.2); Total Protein 5.7 g/dL (6.6-8.7)
[2022-09-20] MEDS: duloxetine 60 mg Capsule 120 MG PO (05:45)
[2022-09-20] MEDS: levothyroxine 25 mcg Tablet PO (05:46)
[2022-09-20] MEDS: gabapentin 300 mg Capsule PO (05:46)
[2022-09-20] MEDS: aspirin 81 mg EC Tablet PO (05:46)
[2022-09-20] MEDS: sennosides-docusate Tablet 1 TAB PO (08:24)
[2022-09-20] MEDS: polyethylene glycol 3350 Pkt 17 gm PO (08:24)
[2022-09-20] MEDS: pantoprazole 40 mg SDV IVP ×2 (08:24→18:01)
[2022-09-20] MEDS: oxybutynin 5 mg Tablet PO ×2 (08:24→18:02)
--- NOTE | 2022-09-20 09:36 | PM.PN ---
Subjective Subjective: Reports having some nausea this morning. She also says that her belly feels like there is a tight band around it. Her blood pressure has been more elevated into the 160-200 systolic range. She denies any chest pain or shortness of breath. She denies having a bowel movement today, but says she did yesterday. Vitals/I&O/Wt Last Vital Signs Temp 98.4 F 09/20/22 07:00 Pulse 80 09/20/22 08:00 Resp 16 09/20/22 08:00 BP 205/92 09/20/22 07:00 Pulse Ox 94 09/20/22 08:00 O2 Del Method 09/20/22 08:00 O2 Flow Rate 2 09/17/22 08:21 09/19/22 09/20/22 09/20/22 22:59 06:59 14:59 Intake Total 120 / 1580 Output Total 1750 / 1750 1950 / 3700 Balance -1630 / -170 -1950 / -2120 Physical Exam Narrative: General: Cooperative patient in no apparent distress. Well developed. HEENT: Normocephalic, Atraumatic. External ears normal. Nasal passages patent without drainage. MMM. Heart: RRR. Resp: LCTA. No respiratory distress, no use of accessory muscles. Abd: Soft, non-tender. Non-distended. Bowel sounds present normal. Extremities: No edema. Skin: No rash or lesions on exposed areas. Urinary Catheter Management: [place]: Cath Placed During This Visit: yes Reason for Continuing Indwelling Catheter: Acute Urinary Retention or Obstruction Urinary Catheter Date of Insertion: 09/17/22 Urinary Catheter Time of Insertion: 03:30 Data 09/20/22 02:43 09/20/22 02:43 Micro: Microbiology 09/16/22 23:29 Blood Culture - Preliminary Blood Escherichia coli esbl 09/17/22 00:05 Urine Culture - Final Urine,Clean Catch Escherichia coli esbl A&P Assessment and plan (1) ESBL (extended spectrum beta-lactamase) producing bacteria infection: (2) Septic shock: (3) Sepsis: Qualifiers: Sepsis acute organ dysfunction status: with acute organ dysfunction Severe sepsis acute organ dysfunction type: unspecified Severe sepsis shock status: with septic shock (4) Urinary tract infection: (5) Hypothyroidism: (6) Acute kidney injury superimposed on chronic kidney disease: Plan 82-year-old female admitted for septic shock from urinary tract infection. Continue inpatient monitoring. Blood pressure is elevated. WBC count is trended down. Creatinine is down to 1.2. Restarted home blood pressure medications today. Will treat current elevation with hydralazine and IV labetalol. My hope is that her pressure will stabilize now that she has resumed her home medications. Blood cultures are negative today. Urine culture currently shows ESBL sensitive to meropenem. She is set up with home health upon discharge. She will need continued IV antibiotics to complete a 10-day course. Urine output has remained in normal levels. Repeat a.m. labs. Continue DVT prophylaxis. Continue home medications for other chronic medical illnesses. Code Status: Full IVF: None DVT PPx: Heparin GI PPx: Protonix ABx: meropenem Diet: Cardiac Discharge plan: Home with home health. Attestations Medical Necessity Statement*: Will need continued hospitalization for management of sepsis, IV antibiotics, blood and urine cultures. Might be dealing, lately dealing Coding Level of Care Code Acute Code for Chg Fwd Moderate MDM includes number and complexity of problems actively addressed during encounter, amount and/or complexity of data reviewed/ordered and described risk of complication, morbidity or mortality of management as documented Diagnoses ESBL (extended spectrum beta-lactamase) producing bacteria infection A49.9; Z16.12 Septic shock A41.9; R65.21 Sepsis A41.9 Sepsis acute organ dysfunction status: with acute organ dysfunction Severe sepsis acute organ dysfunction type: unspecified Severe sepsis shock status: with septic shock Urinary tract infection N39.0 Hypothyroidism E03.9 Acute kidney injury superimposed on chronic kidney disease N17.9; N18.9
[2022-09-20] MEDS: meropenem 1,000 MG in sodium chloride 0.9% (plus) 50 ML 200 MG IV ×2 (10:34→22:24)
[2022-09-20] MEDS: verapamil ER 240 mg Tablet PO (10:57)
[2022-09-20] MEDS: ondansetron 2 mg/ML SDV 2 mL 4 MG IVP (13:01)
--- NOTE | 2022-09-20 13:40 | PC.SOCIAL ---
IMM UPDATED IMM dated and initialed and copy given to patient and placed in chart.
[2022-09-20] MEDS: hyDRALAzine 20 mg/mL INJ 1 mL 10 MG IVP (16:07)
[2022-09-20] MEDS: labetalol 5 mg/mL SDV 20mL 20 MG IVP (16:58)
[2022-09-20] MEDS: gabapentin 300 mg Capsule 600 MG PO (18:01)
[2022-09-20] MEDS: trazodone 50 mg Tablet PO (20:04)
[2022-09-21] VITALS (12 sets, daily range): BP systolic 115–158; BP diastolic 65–81; PULSE 63–74; RESP 14–19; TEMP 36.7–37.5; O2SAT 90–93
[2022-09-21] MEDS: heparin 5,000 unit/mL INJ 1 mL 5000 UNIT SUBCUT ×2 (02:41→14:47)
[2022-09-21] MEDS: hyDRALAzine 25 mg Tablet PO ×3 (02:41→18:44)
[2022-09-21 04:56] LABS: Basophils % 0.3 %; Eosinophils # 0.2 10^3/uL (0.0-0.8); Eosinophils % 2.5 %; Hematocrit 31.3 % (37.0-47.0); Hemoglobin 9.7 g/dL (11.5-15.3); Lymphocytes # 1.6 10^3/uL (0.8-4.8); Mean Corpuscular Hemoglobin 27.2 pg (28.0-34.0); Mean Corpuscular Volume 87.7 fl (81-99); Mean Platelet Volume 11.5 fL (7.4-10.4); Monocytes # 1.3 10^3/uL (0.2-0.9); Monocytes % 16.1 %; Neutrophils # 4.71 10^3/uL (1.8-7.7); Neutrophils % 59.5 %; Nucleated Red Blood Cells % 0 %; Platelet Count 252 10^3/cmm (130-400); Red Blood Count 3.57 10^6/uL (4.1-5.3); Red Cell Distribution Width 14.5 % (12.1-15.1); White Blood Count 7.9 10^3/uL (4.0-10.0)
[2022-09-21 05:22] LABS: Alanine Aminotransferase 14 U/L (0-33); Albumin Level 2.9 g/dL (3.5-5.2); Alkaline Phosphatase 82 U/L (35-105); Anion Gap 15.1 (5-19); Aspartate Amino Transferase 16 U/L (0-32); Blood Urea Nitrogen 13 mg/dL (8-23); C Reactive Protein 27.8 mg/L (0.0-4.9); Calcium 8.6 mg/dL (8.5-10.5); Carbon Dioxide 23 mmol/L (22-29); Chloride 106 mmol/L (98-107); Globulin 2.7 g/dL (1.3-4.6); Glucose 93 mg/dL (65-115); Osmolality Calculated 290 mOsm/kg (285-295); Potassium 4.1 mmol/L (3.5-5.1); Procalcitonin 17.24 ng/mL (0-0.5); Sodium 140 mmol/L (136-145); Total Bilirubin 0.5 mg/dL (0.15-1.2); Total Protein 5.6 g/dL (6.6-8.7)
[2022-09-21] MEDS: atorvastatin 40 mg Tablet 20 MG PO (05:44)
[2022-09-21] MEDS: verapamil ER 240 mg Tablet PO (05:44)
[2022-09-21] MEDS: gabapentin 300 mg Capsule PO (05:45)
[2022-09-21] MEDS: potassium chloride ER 10 mEq Tablet PO (05:45)
[2022-09-21] MEDS: levothyroxine 25 mcg Tablet PO (05:45)
[2022-09-21] MEDS: duloxetine 60 mg Capsule 120 MG PO (05:45)
[2022-09-21] MEDS: FUROsemide 40 mg Tablet PO (05:45)
[2022-09-21] MEDS: aspirin 81 mg EC Tablet PO (05:45)
[2022-09-21] MEDS: polyethylene glycol 3350 Pkt 17 gm PO (08:47)
[2022-09-21] MEDS: sennosides-docusate Tablet 1 TAB PO (08:48)
[2022-09-21] MEDS: oxybutynin 5 mg Tablet PO ×2 (08:48→17:24)
[2022-09-21] MEDS: pantoprazole 40 mg SDV IVP ×2 (08:48→17:23)
[2022-09-21] MEDS: meropenem 1,000 MG in sodium chloride 0.9% (plus) 50 ML 200 MG IV ×2 (11:06→22:36)
[2022-09-21] MEDS: oxyCODONE 5 mg IR Tab/Cap PO ×3 (11:14→23:32)
[2022-09-21] MEDS: nystatin 100,000 unit/mL UDC 5 mL 100000 UNIT PO ×3 (12:35→20:41)
--- NOTE | 2022-09-21 13:30 | PC.NURSE ---
Midline placed to left basilic vein without difficulty. Risk and benefits explained to patient and informed consent obtained prior to placement. Mid-arm circumference measured 10 cm from left AC and noted at 27 cm. Trimmed cath length 10 cm with no external length noted. Less than 5 mL EBL. Pt tolerated well. Report given to bedside nurse, TOMSÁ Yates.
[2022-09-21] MEDS: gabapentin 300 mg Capsule 600 MG PO (17:23)
--- NOTE | 2022-09-21 18:55 | P.PN_ITS ---
Subjective Subjective: Patient was seen and examined this morning has been afebrile overnight, no other acute events. Repeat blood culture was drawn this morning. Continue meropenem for now. Medications: Medication Review Details: Generic Name Dose Route Start Last Admin Trade Name Jasmin PRN Reason Stop Dose Admin Acetaminophen 500 mg 09/17/22 02:14 09/18/22 06:56 Acetaminophen 50 0 Mg Tablet PO 500 mg Q4H PRN Administration fever Aspirin 81 mg 09/18/22 06:00 09/21/22 05:45 Aspirin 81 Mg Ec Tablet PO 81 mg QAM IRLANDA Administration Atorvastatin Calci um 20 mg 09/21/22 06:00 09/21/22 05:44 Atorvastatin 40 Mg Tablet PO 20 mg QAM IRLANDA Administration Duloxetine HCl 120 mg 09/18/22 06:00 09/21/22 05:45 Duloxetine 60 Mg Capsule PO 120 mg QAM IRLANDA Administration Furosemide 40 mg 09/21/22 06:00 09/21/22 05:45 Furosemide 40 Mg Tablet PO 40 mg QAM IRLANDA Administration Gabapentin 300 mg 09/17/22 23:45 09/21/22 05:45 Gabapentin 300 M g Capsule PO 300 mg QAM ILRANDA Administration Gabapentin 600 mg 09/18/22 18:00 09/21/22 17:23 Gabapentin 300 M g Capsule PO 600 mg QPM IRLANDA Administration Heparin Sodium (Po rcine) 5,000 unit 09/17/22 02:14 09/21/22 14:47 Heparin 5,000 Un it/Ml Inj 1 Ml SUBCUT 5,000 unit Q12H IRLANDA Administration Hydralazine HCl 25 mg 09/18/22 19:15 09/21/22 18:44 Hydralazine 25 M g Tablet PO 25 mg Q8H IRLANDA Administration Meropenem 1,000 mg / Sodium 50 mls @ 200 mls/ hr 09/19/22 23:00 09/21/22 11:39 Chloride IV Infused Q12H IRLANDA Infusion Protocol Labetalol HCl 20 mg 09/20/22 15:55 09/20/22 16:58 Labetalol 5 Mg/M l Sdv 20ml IVP 20 mg ONCE PRN Administration HYPERTENSION Levothyroxine Sodi um 25 mcg 09/17/22 06:00 09/21/22 05:45 Levothyroxine 25 Mcg Tablet PO 25 mcg DAILY@0600 IRLANDA Administration Non-Formulary Medi cation 25 mg 09/20/22 18:00 09/21/22 17:24 Milnacipran [Bassam guerita] PO 25 mg BID IRLANDA Administration Nystatin 100,000 unit 09/21/22 13:00 09/21/22 17:23 Nystatin 100,000 Unit/Ml Udc 5 Ml PO 100,000 unit QID IRLANDA Administration Ondansetron HCl 4 mg 09/17/22 02:14 09/20/22 13:01 Ondansetron 2 Mg /Ml Sdv 2 Ml IVP 4 mg Q6H PRN Administration NAUSEA AND VOMITI NG Oxybutynin Chlorid e 5 mg 09/18/22 09:00 09/21/22 17:24 Oxybutynin 5 Mg Tablet PO 5 mg BID IRLANDA Administration Oxycodone HCl 5 mg 09/18/22 11:35 09/21/22 17:24 Oxycodone 5 Mg I r Tab/Cap PO 5 mg Q6H PRN Administration MODERATE PAIN Pantoprazole Sodiu m 40 mg 09/17/22 09:00 09/21/22 17:23 Pantoprazole 40 Mg Sdv IVP 40 mg BID IRLANDA Administration Polyethylene Glyco l 17 gm 09/19/22 09:00 09/21/22 08:47 Polyethylene Gly col 3350 Pkt 17 Gm PO 17 gm DAILY IRLANDA Administration Potassium Chloride 10 meq 09/21/22 06:00 09/21/22 05:45 Potassium Chlori de Er 10 Meq Table t PO 10 meq QAM IRLANDA Administration Senna/Docusate Sod ium 1 tab 09/17/22 09:00 09/21/22 08:48 Sennosides-Docus ate Tablet PO 1 tab DAILY IRLANDA Administration Trazodone HCl 50 mg 09/18/22 21:00 09/20/22 20:04 Trazodone 50 Mg Tablet PO 50 mg BEDTIME IRLANDA Administration Verapamil HCl 240 mg 09/20/22 11:00 09/21/22 05:44 Verapamil Er 240 Mg Tablet PO 240 mg QAM IRLANDA Administration Vitals/I&O/Wt Last Vital Signs Temp 98.0 F 09/21/22 15:57 Pulse 66 09/21/22 15:57 Resp 18 09/21/22 17:24 BP 130/65 09/21/22 15:57 Pulse Ox 92 09/21/22 15:57 O2 Del Method 09/21/22 15:57 O2 Flow Rate 2 09/17/22 08:21 09/21/22 09/21/22 09/21/22 06:59 14:59 22:59 Intake Total 460 / 460 120 / 580 Output Total 650 / 1350 1650 / 1650 Balance -650 / -940 460 / 460 -1530 / -1070 Physical Exam Narrative: Patient is currently not in acute distress. HENMT: COMMON NORMALS: normocephalic and atraumatic HEAD & SCALP: normocephalic and atraumatic Resp: COMMON NORMALS: normal respiratory effort, No retractions, No use of accessory muscles and clear to auscultation bilaterally EFFORT & INSPECTION: Yes symmetric chest movement AUSCULTATION: clear to auscultation bilaterally Cardio: COMMON NORMALS: regular rate, regular rhythm, S1 normal heart sound present, S2 normal heart sound present, No gallops present (Cardio), No murmurs present (Cardio), No rub (Cardio) and Peripheral pulses 2+ throughout RATE: regular rate RHYTHM: regular rhythm HEART SOUNDS: S1 normal heart sound present and S2 normal heart sound present PERIPHERAL PULSES: Peripheral pulses 2+ throughout GI: COMMON NORMALS: Normal to inspection, nondistended, normoactive bowel sounds present, Soft to palpation, non-tender, No hepatosplenomegaly present and no masses AUSCULTATION: Yes normoactive bowel sounds PALPATION: Yes Soft to palpation and Yes No hepatosplenomegaly present RECTAL EXAM: deferred Extremity: COMMON NORMALS: no clubbing, cyanosis or edema and no pedal edema Urinary Catheter Management: [place]: Cath Placed During This Visit: yes Reason for Continuing Indwelling Catheter: Acute Urinary Retention or Obstructio n Urinary Catheter Date of Insertion: 09/17/22 Urinary Catheter Time of Insertion: 03:30 Data 09/21/22 03:43 09/21/22 03:43 Micro: Microbiology 09/21/22 08:42 Blood Culture - Preliminary Blood SPECIMEN COLLECTED 09/21/22 08:55 Blood Culture - Preliminary Blood SPECIMEN COLLECTED A&P Assessment and plan (1) ESBL (extended spectrum beta-lactamase) producing bacteria infection: (2) Septic shock: (3) Sepsis: Qualifiers: Sepsis acute organ dysfunction status: with acute organ dysfunction Severe sepsis acute organ dysfunction type: unspecified Severe sepsis shock status: with septic shock (4) Urinary tract infection: (5) Hypothyroidism: (6) Acute kidney injury superimposed on chronic kidney disease: Plan 82-year-old female admitted for septic shock from urinary tract infection. Continue inpatient monitoring. Blood pressure is elevated. WBC count is trended down. Creatinine is down to 1.2. Restarted home blood pressure medications today. Will treat current elevation with hydralazine and IV labetalol. My hope is that her pressure will stabilize now that she has resumed her home medications. Blood cultures are negative today. Urine culture currently shows ESBL sensitive to meropenem. She is set up with home health upon discharge. She will need continued IV antibiotics to complete a 10-day course. Urine output has remained in normal levels. Repeat a.m. labs. Continue DVT prophylaxis. Continue home medications for other chronic medical illnesses. Code Status: Full IVF: None DVT PPx: Heparin GI PPx: Protonix ABx: meropenem Diet: Cardiac Discharge plan: Home with home health. Attestations Medical Necessity Statement*: Needs to be in hospital for IV antibiotics, need for repeat blood culture. Coding Level of Care Code 28139 Diagnoses ESBL (extended spectrum beta-lactamase) producing bacteria infection A49.9; Z16.12 Septic shock A41.9; R65.21 Sepsis A41.9 Sepsis acute organ dysfunction status: with acute organ dysfunction Severe sepsis acute organ dysfunction type: unspecified Severe sepsis shock status: with septic shock Urinary tract infection N39.0 Hypothyroidism E03.9 Acute kidney injury superimposed on chronic kidney disease N17.9; N18.9
[2022-09-21] MEDS: trazodone 50 mg Tablet PO (20:40)
[2022-09-22] VITALS (10 sets, daily range): BP systolic 132–166; BP diastolic 70–77; PULSE 58–72; RESP 16–20; TEMP 36.6–36.8; O2SAT 91–95
--- NOTE | 2022-09-22 00:33 | PC.NURSE ---
PT CARE Pt care being assumed by Jenise ENGLAND at this time
[2022-09-22] MEDS: hyDRALAzine 25 mg Tablet PO ×3 (02:42→19:27)
[2022-09-22] MEDS: heparin 5,000 unit/mL INJ 1 mL 5000 UNIT SUBCUT ×2 (02:42→14:57)
[2022-09-22 05:07] LABS: Basophils % 0.5 %; Eosinophils # 0.4 10^3/uL (0.0-0.8); Eosinophils % 4.4 %; Hematocrit 29.3 % (37.0-47.0); Hemoglobin 9.1 g/dL (11.5-15.3); Lymphocytes # 1.9 10^3/uL (0.8-4.8); Lymphocytes % 23.9 %; Mean Corpuscular HGB Conc 31.1 g/dL (30.0-36.0); Mean Corpuscular Hemoglobin 27.6 pg (28.0-34.0); Mean Corpuscular Volume 88.8 fl (81-99); Mean Platelet Volume 10.5 fL (7.4-10.4); Monocytes # 1.3 10^3/uL (0.2-0.9); Monocytes % 15.8 %; Neutrophils # 4.16 10^3/uL (1.8-7.7); Neutrophils % 52.3 %; Nucleated Red Blood Cells % 0 %; Platelet Count 269 10^3/cmm (130-400); Red Cell Distribution Width 14.5 % (12.1-15.1)
[2022-09-22 05:42] LABS: Alanine Aminotransferase 15 U/L (0-33); Albumin Level 2.8 g/dL (3.5-5.2); Alkaline Phosphatase 79 U/L (35-105); Anion Gap 12.4 (5-19); Aspartate Amino Transferase 17 U/L (0-32); Blood Urea Nitrogen 17 mg/dL (8-23); Calcium 8.5 mg/dL (8.5-10.5); Carbon Dioxide 27 mmol/L (22-29); Chloride 106 mmol/L (98-107); Globulin 2.5 g/dL (1.3-4.6); Glucose 95 mg/dL (65-115); Osmolality Calculated 293 mOsm/kg (285-295); Potassium 4.4 mmol/L (3.5-5.1); Sodium 141 mmol/L (136-145); Total Bilirubin 0.4 mg/dL (0.15-1.2); Total Protein 5.3 g/dL (6.6-8.7)
[2022-09-22] MEDS: duloxetine 60 mg Capsule 120 MG PO (06:34)
[2022-09-22] MEDS: atorvastatin 40 mg Tablet 20 MG PO (06:34)
[2022-09-22] MEDS: aspirin 81 mg EC Tablet PO (06:34)
[2022-09-22] MEDS: potassium chloride ER 10 mEq Tablet PO (06:35)
[2022-09-22] MEDS: FUROsemide 40 mg Tablet PO (06:35)
[2022-09-22] MEDS: gabapentin 300 mg Capsule PO (06:35)
[2022-09-22] MEDS: oxyCODONE 5 mg IR Tab/Cap PO ×2 (06:35→12:43)
[2022-09-22] MEDS: verapamil ER 240 mg Tablet PO (06:35)
[2022-09-22] MEDS: levothyroxine 25 mcg Tablet PO (06:35)
[2022-09-22] MEDS: nystatin 100,000 unit/mL UDC 5 mL 100000 UNIT PO ×4 (08:28→21:44)
[2022-09-22] MEDS: polyethylene glycol 3350 Pkt 17 gm PO (08:28)
[2022-09-22] MEDS: oxybutynin 5 mg Tablet PO ×2 (08:29→17:31)
[2022-09-22] MEDS: pantoprazole 40 mg SDV IVP ×2 (08:29→17:34)
[2022-09-22] MEDS: sennosides-docusate Tablet 1 TAB PO (08:29)
[2022-09-22] MEDS: meropenem 1,000 MG in sodium chloride 0.9% (plus) 50 ML 200 MG IV (10:29)
[2022-09-22] MEDS: lactobacillus 1 Tablet 1 TAB PO ×3 (12:44→20:08)
--- NOTE | 2022-09-22 12:46 | PC.SOCIAL ---
IMM Updated Updated pt on IMM. No questions voiced. Provided pt a copy. Initialed, dated, & timed copy in chart.
--- NOTE | 2022-09-22 14:56 | P.PN_ITS ---
Subjective Subjective: Patient was seen and examined this morning, overall doing better, repeat blood culture has been negative So far. Has continued to remain afebrile. If blood culture continues to be remain negative, will discharge her on IV ertapenem 1 g daily for 2 weeks, Start date 09/23. Medications: Medication Review Details: Generic Name Dose Route Start Last Admin Trade Name Yonatanq PRN Reason Stop Dose Admin Acetaminophen 500 mg 09/17/22 02:14 09/18/22 06:56 Acetaminophen 50 0 Mg Tablet PO 500 mg Q4H PRN Administration fever Aspirin 81 mg 09/18/22 06:00 09/22/22 06:34 Aspirin 81 Mg Ec Tablet PO 81 mg QAM IRLANDA Administration Atorvastatin Calci um 20 mg 09/21/22 06:00 09/22/22 06:34 Atorvastatin 40 Mg Tablet PO 20 mg QAM IRLANDA Administration Duloxetine HCl 120 mg 09/18/22 06:00 09/22/22 06:34 Duloxetine 60 Mg Capsule PO 120 mg QAM IRLANDA Administration Furosemide 40 mg 09/21/22 06:00 09/22/22 06:35 Furosemide 40 Mg Tablet PO 40 mg QAM IRLANDA Administration Gabapentin 300 mg 09/17/22 23:45 09/22/22 06:35 Gabapentin 300 M g Capsule PO 300 mg QAM IRLANDA Administration Gabapentin 600 mg 09/18/22 18:00 09/21/22 17:23 Gabapentin 300 M g Capsule PO 600 mg QPM IRLANDA Administration Heparin Sodium (Po rcine) 5,000 unit 09/17/22 02:14 09/22/22 02:42 Heparin 5,000 Un it/Ml Inj 1 Ml SUBCUT 5,000 unit Q12H IRLANDA Administration Hydralazine HCl 25 mg 09/18/22 19:15 09/22/22 10:29 Hydralazine 25 M g Tablet PO 25 mg Q8H IRLANDA Administration Meropenem 1,000 mg / Sodium 50 mls @ 200 mls/ hr 09/19/22 23:00 09/22/22 13:00 Chloride IV Infused Q12H IRLANDA Infusion Protocol Labetalol HCl 20 mg 09/20/22 15:55 09/20/22 16:58 Labetalol 5 Mg/M l Sdv 20ml IVP 20 mg ONCE PRN Administration HYPERTENSION Lactobacillus Acid ophilus 1 tab 09/22/22 13:00 09/22/22 12:44 Lactobacillus 1 Tablet PO 1 tab QID IRLANDA Administration Levothyroxine Sodi um 25 mcg 09/17/22 06:00 09/22/22 06:35 Levothyroxine 25 Mcg Tablet PO 25 mcg DAILY@0600 IRLANDA Administration Non-Formulary Medi cation 25 mg 09/20/22 18:00 09/22/22 08:29 Milnacipran [Bassam guerita] PO 25 mg BID IRLANDA Administration Nystatin 100,000 unit 09/21/22 13:00 09/22/22 12:44 Nystatin 100,000 Unit/Ml Udc 5 Ml PO 100,000 unit QID IRLANDA Administration Ondansetron HCl 4 mg 09/17/22 02:14 09/20/22 13:01 Ondansetron 2 Mg /Ml Sdv 2 Ml IVP 4 mg Q6H PRN Administration NAUSEA AND VOMITI NG Oxybutynin Chlorid e 5 mg 09/18/22 09:00 09/22/22 08:29 Oxybutynin 5 Mg Tablet PO 5 mg BID IRLANDA Administration Oxycodone HCl 5 mg 09/18/22 11:35 09/22/22 12:43 Oxycodone 5 Mg I r Tab/Cap PO 5 mg Q6H PRN Administration MODERATE PAIN Pantoprazole Sodiu m 40 mg 09/17/22 09:00 09/22/22 08:29 Pantoprazole 40 Mg Sdv IVP 40 mg BID IRLANDA Administration Polyethylene Glyco l 17 gm 09/19/22 09:00 09/22/22 08:28 Polyethylene Gly col 3350 Pkt 17 Gm PO 17 gm DAILY IRLANDA Administration Potassium Chloride 10 meq 09/21/22 06:00 09/22/22 06:35 Potassium Chlori de Er 10 Meq Table t PO 10 meq QAM IRLANDA Administration Senna/Docusate Sod ium 1 tab 09/17/22 09:00 09/22/22 08:29 Sennosides-Docus ate Tablet PO 1 tab DAILY IRLANDA Administration Trazodone HCl 50 mg 09/18/22 21:00 09/21/22 20:40 Trazodone 50 Mg Tablet PO 50 mg BEDTIME IRLANDA Administration Verapamil HCl 240 mg 09/20/22 11:00 09/22/22 06:35 Verapamil Er 240 Mg Tablet PO 240 mg QAM IRLANDA Administration Vitals/I&O/Wt Last Vital Signs Temp 98.0 F 09/22/22 11:00 Pulse 67 09/22/22 11:00 Resp 17 09/22/22 12:43 BP 132/77 09/22/22 11:00 Pulse Ox 93 09/22/22 11:00 O2 Del Method 09/22/22 11:00 O2 Flow Rate 2 09/17/22 08:21 09/21/22 09/22/22 09/22/22 22:59 06:59 14:59 Intake Total 240 / 700 170 / 870 170 / 170 Output Total 1650 / 1650 1250 / 1250 Balance -1410 / -950 170 / -780 -1080 / -1080 Physical Exam Narrative: Patient is currently not in acute distress. HENMT: COMMON NORMALS: normocephalic and atraumatic HEAD & SCALP: nor mocephalic and atraumatic Resp: COMMON NORMALS: normal respiratory effort, No retractions, No use of accessory muscles and clear to auscultation bilaterally EFFORT & INSPECTION: Yes symmetric chest movement AUSCULTATION: clear to auscultation bilaterally Cardio: COMMON NORMALS: regular rate, regular rhythm, S1 normal heart sound present, S2 normal heart sound present, No gallops present (Cardio), No murmurs present (Cardio), No rub (Cardio) and Peripheral pulses 2+ throughout RATE: regular rate RHYTHM: regular rhythm HEART SOUNDS: S1 normal heart sound present and S2 normal heart sound present PERIPHERAL PULSES: Peripheral pulses 2+ throughout GI: COMMON NORMALS: Normal to inspection, nondistended, normoactive bowel sounds present, Soft to palpation, non-tender, No hepatosplenomegaly present and no masses AUSCULTATION: Yes normoactive bowel sounds PALPATION: Yes Soft to palpation and Yes No hepatosplenomegaly present RECTAL EXAM: deferred Extremity: COMMON NORMALS: no clubbing, cyanosis or edema and no pedal edema Urinary Catheter Management: [place]: Cath Placed During This Visit: yes Reason for Continuing Indwelling Catheter: Other Urinary Catheter Date of Insertion: 09/17/22 Urinary Catheter Time of Insertion: 03:30 Data 09/22/22 03:51 09/22/22 03:51 Micro: Microbiology 09/21/22 08:42 Blood Culture - Preliminary Blood NEGATIVE TO DATE 09/21/22 08:55 Blood Culture - Preliminary Blood NEGATIVE TO DATE 09/16/22 23:29 Blood Culture - Final Blood NO GROWTH AFTER 5 DAYS A&P Assessment and plan (1) ESBL (extended spectrum beta-lactamase) producing bacteria infection: (2) Septic shock: (3) Sepsis: Qualifiers: Sepsis acute organ dysfunction status: with acute organ dysfunction Severe sepsis acute organ dysfunction type: unspecified Severe sepsis shock status: with septic shock (4) Urinary tract infection: (5) Hypothyroidism: (6) Acute kidney injury superimposed on chronic kidney disease: Plan 82-year-old female admitted for septic shock from urinary tract infection. Continue inpatient monitoring. Blood pressure is elevated. WBC count is trended down. Creatinine is down to 1.2. Restarted home blood pressure medications today. Will treat current elevation with hydralazine and IV labetalol. My hope is that her pressure will stabilize now that she has resumed her home medications. Blood cultures are negative today. Urine culture currently shows ESBL sensitive to meropenem. She is set up with home health upon discharge. She will need continued IV antibiotics to complete a 10-day course. Urine output has remained in normal levels. Repeat a.m. labs. Continue DVT prophylaxis. Continue home medications for other chronic medical illnesses. Code Status: Full IVF: None DVT PPx: Heparin GI PPx: Protonix ABx: meropenem Diet: Cardiac Discharge plan: Home with home health. Attestations Medical Necessity Statement*: Patient is in hospital for IV antibiotics. Coding Level of Care Code 77163 Diagnoses ESBL (extended spectrum beta-lactamase) producing bacteria infection A49.9; Z16.12 Septic shock A41.9; R65.21 Sepsis A41.9 Sepsis acute organ dysfunction status: with acute organ dysfunction Severe sepsis acute organ dysfunction type: unspecified Severe sepsis shock status: with septic shock Urinary tract infection N39.0 Hypothyroidism E03.9 Acute kidney injury superimposed on chronic kidney disease N17.9; N18.9
[2022-09-22] MEDS: gabapentin 300 mg Capsule 600 MG PO (17:31)
[2022-09-22] MEDS: cetacaine Spray 20 gm Can 1 SPRAY TOPICAL (17:48)
[2022-09-22] MEDS: ertapenem 1,000 MG in sodium chloride 0.9% (plus) 100 ML 200 MG IV (20:06)
[2022-09-22] MEDS: trazodone 50 mg Tablet PO (20:08)
[2022-09-23] MEDS: hyDRALAzine 25 mg Tablet PO ×2 (02:25→10:54)
[2022-09-23] MEDS: heparin 5,000 unit/mL INJ 1 mL 5000 UNIT SUBCUT (02:25)
[2022-09-23 02:31] LABS: Basophils # 0.1 10^3/uL (0.0-0.1); Basophils % 0.7 %; Eosinophils # 0.5 10^3/uL (0.0-0.8); Eosinophils % 6.1 %; Hematocrit 32.5 % (37.0-47.0); Lymphocytes # 1.9 10^3/uL (0.8-4.8); Lymphocytes % 24.4 %; Mean Corpuscular HGB Conc 30.8 g/dL (30.0-36.0); Mean Corpuscular Hemoglobin 27.3 pg (28.0-34.0); Mean Corpuscular Volume 88.8 fl (81-99); Monocytes # 1.2 10^3/uL (0.2-0.9); Monocytes % 15.1 %; Neutrophils # 3.88 10^3/uL (1.8-7.7); Neutrophils % 50.6 %; Nucleated Red Blood Cells % 0 %; Platelet Count 311 10^3/cmm (130-400); Red Blood Count 3.66 10^6/uL (4.1-5.3); Red Cell Distribution Width 14.6 % (12.1-15.1); White Blood Count 7.7 10^3/uL (4.0-10.0)
[2022-09-23 02:56] LABS: Alanine Aminotransferase 16 U/L (0-33); Alkaline Phosphatase 77 U/L (35-105); Anion Gap 12.8 (5-19); Aspartate Amino Transferase 20 U/L (0-32); Blood Urea Nitrogen 20 mg/dL (8-23); Calcium 8.8 mg/dL (8.5-10.5); Carbon Dioxide 29 mmol/L (22-29); Chloride 104 mmol/L (98-107); Globulin 2.9 g/dL (1.3-4.6); Glucose 96 mg/dL (65-115); Osmolality Calculated 294 mOsm/kg (285-295); Potassium 4.8 mmol/L (3.5-5.1); Sodium 141 mmol/L (136-145); Total Bilirubin 0.5 mg/dL (0.15-1.2); Total Protein 5.9 g/dL (6.6-8.7)
[2022-09-23 03:00] VITALS: BP 159/77; PULSE 64; RESP 16; TEMP 36.8; O2SAT 93
[2022-09-23] MEDS: verapamil ER 240 mg Tablet PO (06:17)
[2022-09-23] MEDS: atorvastatin 40 mg Tablet 20 MG PO (06:18)
[2022-09-23] MEDS: duloxetine 60 mg Capsule 120 MG PO (06:18)
[2022-09-23] MEDS: aspirin 81 mg EC Tablet PO (06:18)
[2022-09-23] MEDS: FUROsemide 40 mg Tablet PO (06:18)
[2022-09-23] MEDS: potassium chloride ER 10 mEq Tablet PO (06:18)
[2022-09-23] MEDS: gabapentin 300 mg Capsule PO (06:18)
[2022-09-23] MEDS: levothyroxine 25 mcg Tablet PO (06:18)
[2022-09-23 07:00] VITALS: BP 164/70; PULSE 74; RESP 16; TEMP 37; O2SAT 94
[2022-09-23 08:00] VITALS: PULSE 73; RESP 18; O2SAT 94
[2022-09-23] MEDS: nystatin 100,000 unit/mL UDC 5 mL 100000 UNIT PO (09:05)
[2022-09-23] MEDS: sennosides-docusate Tablet 1 TAB PO (09:06)
[2022-09-23] MEDS: polyethylene glycol 3350 Pkt 17 gm PO (09:06)
[2022-09-23] MEDS: oxybutynin 5 mg Tablet PO (09:06)
[2022-09-23] MEDS: lactobacillus 1 Tablet 1 TAB PO (09:06)
--- NOTE | 2022-09-23 09:34 | P.DS_ITS ---
Discharge Providers Date of Admission: 09/17/22 02:10 Date of Discharge: September 23, 2022 Attending Provider at Admission: Laura Chu MD Attending Provider at Discharge: Chavez Laureano MD Primary Care Provider: Tremayne Sweet Diagnoses at Discharge Discharge Diagnosis (1) ESBL (extended spectrum beta-lactamase) producing bacteria infection: Status: Acute (2) Septic shock: Status: Acute (3) Sepsis: Status: Acute Qualifiers: Sepsis acute organ dysfunction status: with acute organ dysfunction Severe sepsis acute organ dysfunction type: unspecified Severe sepsis shock status: with septic shock (4) Urinary tract infection: Status: Acute (5) Hypothyroidism: Status: Acute (6) Acute kidney injury superimposed on chronic kidney disease: Status: Acute Reason for Visit Reason for Visit: UTI Infections Hospital Course Hospital Course HPI: Dr: Laura Chu MD 82 year old female to the hospital after failing outpatient antibiotic therapy for UTI.? Patient has been given 2 antibiotics by PCP which she has failed.? Today she is febrile and confused that prompted her visit to the ER.? In the ER she was diagnosed septic shock, central line was placed, she was started on antibiotics and septic bolus was administered.? White count 18,000 with fever, tachycardia high lactic acid with endorgan damage creatinine 2.7.?CT abdomen pelvis did not show any obstructive uropathy, gallbladder is distended Constipation,Bibasilar opacities. Hospital course: Patient was admitted for the management of septic shock secondary to UTI, blood culture grew: ESBL E. coli, repeat blood culture was negative, urine culture grew: ESBL E. coli, MRSA PCR was negative Patient was kept on broad-spectrum antibiotics during the hospital stay, she was discharged on ertapenem 1 g IV daily for another 2 weeks starting from 09/23.Overall she responded well to above medical management And she was discharged in stable condition to home, she will continue to follow with the PCP as outpatient. Physical Exam HENMT: COMMON NORMALS: normocephalic and atraumatic HEAD & SCALP: normocephalic and atraumatic Resp: COMMON NORMALS: clear to auscultation bilaterally EFFORT & INSPECTION: Yes symmetric chest movement AUSCULTATION: clear to auscultation bilaterally Cardio: COMMON NORMALS: regular rate, regular rhythm, S1 normal heart sound present, S2 normal heart sound present, No gallops present (Cardio), No murmurs present (Cardio), No rub (Cardio) and Peripheral pulses 2+ throughout RATE: regular rate RHYTHM: regular rhythm HEART SOUNDS: S1 normal heart sound present and S2 normal heart sound present PERIPHERAL PULSES: Peripheral pulses 2+ throughout GI: COMMON NORMALS: Normal to inspection, nondistended, normoactive bowel sounds present, Soft to palpation, non-tender, No hepatosplenomegaly present and no masses AUSCULTATION: Yes normoactive bowel sounds PALPATION: Yes Soft to palpation and Yes No hepatosplenomegaly present RECTAL EXAM: deferred Extremity: COMMON NORMALS: no clubbing, cyanosis or edema and no pedal edema Urinary Catheter Management: [place]: Cath Placed During This Visit: yes Reason for Continuing Indwelling Catheter: Other Urinary Catheter Date of Insertion: 09/17/22 Urinary Catheter Time of Insertion: 03:30 Discharge Data Studies Completed and Pending Completed Studies During Hospitalization Category Date Time Status CT abdomen renal stone [CT kidney stone [id number]] Stat Cat Scan 09/16/22 23:57 Completed XR chest 1V portable [id number] Stat Exams 09/17/22 01:12 Completed XR chest 1V portable [id number] Urgent Exams 09/16/22 23:08 Completed US liver [id number] Routine Ultrasound 09/17/22 17:21 Completed Pending at discharge Category Date Time Status Blood Culture Routine Lab 09/21/22 08:42 Results Sputum Culture and Gram Stain Stat Lab 09/17/22 01:49 Uncollected Radiology Impressions Abdomen/Pelvis CT 09/16/22 23:57 IMPRESSION: 1. Negative for focal acute inflammatory process in the abdomen or pelvis. 2. Gallbladder is somewhat distended, ultrasound could further evaluate this. 3. Left adrenal 14 mm nodule suspected, indeterminate, dedicated adrenal imaging could further evaluate this. 4. Diverticulosis without diverticulitis. 5. Constipation. 6. Surgical hardware in the lumbar spine. 7. Right hip arthroplasty changes. 8. Patchy bibasilar right greater than left atelectasis versus infiltrate. 9. Small hiatal hernia. Chest X-Ray 09/17/22 01:12 IMPRESSION: 1. Right central venous catheter with tip approaching the atrial junction. 2. Mild cardiomegaly and pulmonary vascular congestion suspected. 3. New right upper lobe minimal airspace opacifications suspected. Liver Ultrasound 09/17/22 17:21 IMPRESSION: 1. Normal gallbladder. No sludge or stones or wall thickening. No Paulson's sign. 2. Liver is negative. Laboratory Results WBC 7.7 10^3/uL (4.0-10.0) 09/23/22 02:20 RBC 3.66 10^6/uL (4.1-5.3) L 09/23/22 02:20 Hgb 10.0 g/dL (11.5-15.3) L 09/23/22 02:20 Hct 32.5 % (37.0-47.0) L 09/23/22 02:20 MCV 88.8 fl (81-99) 09/23/22 02:20 MCH 27.3 pg (28.0-34.0) L 09/23/22 02:20 MCHC 30.8 g/dL (30.0-36.0) 09/23/22 02:20 RDW 14.6 % (12.1-15.1) 09/23/22 02:20 Plt Count 311 10^3/cmm (130-400) 09/23/22 02:20 MPV 10.0 fL (7.4-10.4) 09/23/22 02:20 Neut % (Auto) 50.6 % 09/23/22 02:20 Lymph % (Auto) 24.4 % 09/23/22 02:20 [place] % (Auto) 15.1 % 09/23/22 02:20 Eos % (Auto) 6.1 % 09/23/22 02:20 Baso % (Auto) 0.7 % 09/23/22 02:20 Neut # (Auto) 3.88 10^3/uL (1.8-7.7) 09/23/22 02:20 Lymph # (Auto) 1.9 10^3/uL (0.8-4.8) 09/23/22 02:20 [place] # (Auto) 1.2 10^3/uL (0.2-0.9) H 09/23/22 02:20 Eos # (Auto) 0.5 10^3/uL (0.0-0.8) 09/23/22 02:20 Baso # (Auto) 0.1 10^3/uL (0.0-0.1) 09/23/22 02:20 Nucleated RBC % (auto) 0 % 09/23/22 02:20 Total Counted 100 (0-100) 09/17/22 02:17 Atypical Lymphs % 0.0 % (0-5) 09/17/22 02:17 Absolute Neutrophils 22.7 10^3/cmm (1.4-6.5) H 09/17/22 02:17 Segmented Neutrophils 93 % 09/17/22 02:17 Abs Segm Neuts (Man) 22.7 10/cmm (1.6-7.1) H 09/17/22 02:17 Band Neutrophils 0.0 % 09/17/22 02:17 Abs Band Neuts (Man) 0.0 10^3/cmm (0.0-1.2) 09/17/22 02:17 Absolute Lymphocytes 0.2 10^3/cmm (1.2-3.4) L 09/17/22 02:17 Lymphocytes (Manual) 1 % 09/17/22 02:17 Monocytes (Manual) 4.0 % 09/17/22 02:17 Absolute Monocytes 1.0 10^3/cmm (0.1-0.6) H 09/17/22 02:17 Eosinophils (Manual) 0 % 09/17/22 02:17 Absolute Eosinophils 0.0 10^3/cmm (0.0-0.7) 09/17/22 02:17 Basophils (Manual) 0.0 % 09/17/22 02:17 Absolute Basophils 0.0 10^3/cmm (0.0-0.2) 09/17/22 02:17 Metamyelocytes 0.0 % 09/17/22 02:17 Myelocytes 2.0 % 09/17/22 02:17 Nucleated RBCs # 0.0 /100WBC 09/23/22 02:20 Platelet Estimate Normal (Normal) 09/17/22 02:17 Specimen Type [place] 09/17/22 05:09 Sample Site Brachial, right 09/17/22 05:09 ABG pH 7.35 (7.35-7.45) 09/17/22 05:09 ABG pCO2 37.8 mmHg (35-45) 09/17/22 05:09 ABG pO2 158.0 mmHg (80.0-100.0) H 09/17/22 05:09 ABG HCO3 19.6 mmol/L (22-26) L 09/17/22 05:09 ABG Base Excess -5.3 mmol/L (-2.0-2.0) L 09/17/22 05:09 Michael Test Pos 09/17/22 05:09 Hematocrit 28.9 % (37-47) L 09/17/22 05:09 O2 Delivery Device 09/17/22 05:09 O2 Liters/Min 2.0 % 09/17/22 05:09 Hot Top Liner Helper ID Anonymous 09/17/22 05:09 Sodium 141 mmol/L (136-145) 09/23/22 02:20 Potassium 4.8 mmol/L (3.5-5.1) 09/23/22 02:20 Chloride 104 mmol/L (98-107) 09/23/22 02:20 Carbon Dioxide 29 mmol/L (22-29) 09/23/22 02:20 Anion Gap 12.8 (5-19) 09/23/22 02:20 BUN 20 mg/dL (8-23) 09/23/22 02:20 Creatinine 1.2 mg/dL (0.5-0.9) H 09/23/22 02:20 GFR Calculation Not Reportable 09/23/22 02:20 Glucose 96 mg/dL (65-115) 09/23/22 02:20 Calculated Osmolality 294 mOsm/kg (285-295) 09/23/22 02:20 Lactic Acid 3.6 mmol/L (0.5-2.2) H 09/16/22 23:29 Lactic Acid (Sepsis) 2.2 mmol/L (0.5-2.2) 09/17/22 02:17 Calcium 8.8 mg/dL (8.5-10.5) 09/23/22 02:20 Phosphorus 1.6 mg/dL (2.5-4.5) L 09/17/22 02:17 Magnesium 2.0 mg/dL (1.7-2.3) 09/19/22 03:00 Total Bilirubin 0.5 mg/dL (0.15-1.2) 09/23/22 02:20 AST 20 U/L (0-32) 09/23/22 02:20 ALT 16 U/L (0-33) 09/23/22 02:20 Alkaline Phosphatase 77 U/L (35-105) 09/23/22 02:20 C-Reactive Protein 27.8 mg/L (0.0-4.9) H 09/21/22 03:43 Total Protein 5.9 g/dL (6.6-8.7) L 09/23/22 02:20 Albumin 3.0 g/dL (3.5-5.2) L 09/23/22 02:20 Globulin 2.9 g/dL (1.3-4.6) 09/23/22 02:20 Procalcitonin 17.24 ng/mL (0-0.5) H 09/21/22 03:43 Urine Color Yellow (Yellow) 09/17/22 00:05 Urine Appearance Sl hazy (CLEAR) A 09/17/22 00:05 Urine pH 5 (5-7) 09/17/22 00:05 Ur Specific Rose 1.015 (1.005-1.030) 09/17/22 00:05 Urine Protein 3+ (Negative) H 09/17/22 00:05 Urine Glucose (UA) Norm (Normal) 09/17/22 00:05 Urine Ketones Negative (Negative) 09/17/22 00:05 Urine Blood 2+ (Negative) H 09/17/22 00:05 Urine Nitrate Positive (Negative) H 09/17/22 00:05 Urine Bilirubin Neg (Negative) 09/17/22 00:05 Urine Urobilinogen Neg mg/dL (Negative) 09/17/22 00:05 Ur Leukocyte Esterase 2+ (Negative) H 09/17/22 00:05 Urine RBC 5-10 /hpf (0-2) H 09/17/22 00:05 Urine WBC 15-25 /hpf (0-5) H 09/17/22 00:05 Ur Squamous Epith Cells None /hpf (0-5) 09/17/22 00:05 Amorphous Sediment Not Reportable 09/17/22 00:05 Urine Bacteria 4+ /hpf (NONE) H 09/17/22 00:05 Nasal Influ A H1 2009 PCR Not detected (NOT DETECT) 09/17/22 00:38 Adenovirus (PCR) Not detected (NOT DETECT) 09/17/22 00:38 C. pneumoniae DNA (PCR) Not detected (NOT DETECT) 09/17/22 00:38 Coronavirus 229E (PCR) Not detected (NOT DETECT) 09/17/22 00:38 Human Metapneumovir PCR Not detected (NOT DETECT) 09/17/22 00:38 Influenza A (H1) PCR Not detected (NOT DETECT) 09/17/22 00:38 Influenza A (H3) PCR Not detected (NOT DETECT) 09/17/22 00:38 Influenza Type A (PCR) Not detected (NOT DETECT) 09/17/22 00:38 Influenza Type B (PCR) Not detected (NOT DETECT) 09/17/22 00:38 M. pneumoniae (PCR) Not detected (NOT DETECT) 09/17/22 00:38 Parainfluenza 1 (PCR) Not detected (NOT DETECT) 09/17/22 00:38 Parainfluenza 2 (PCR) Not detected (NOT DETECT) 09/17/22 00:38 Parainfluenza 3 (PCR) Not detected (NOT DETECT) 09/17/22 00:38 Parainfluenza 4 (PCR) Not detected (NOT DETECT) 09/17/22 00:38 RSV Type A (PCR) Not detected (NOT DETECT) 09/17/22 00:38 RSV Type B (PCR) Not detected (NOT DETECT) 09/17/22 00:38 Entero/Rhino (PCR) Not detected (NOT DETECT) 09/17/22 00:38 SARS-CoV-2 (PCR) Not detected (NOT DETECT) 09/17/22 00:38 Vitals Last Vital Signs Temp 98.6 F 09/23/22 07:00 Pulse 73 09/23/22 08:00 Resp 18 09/23/22 08:00 BP 164/70 09/23/22 07:00 Pulse Ox 94 09/23/22 08:00 O2 Del Method Room Air 09/23/22 08:00 O2 Flow Rate 2 09/17/22 08:21 Discharge Plan Discharge Patient Disposition: Home Health Service Condition: Stable Prescriptions: New Lactobacillus acidoph-L.bulgar 1 million cell Tablet 1 tab PO QID 14 Days Qty: 56 0RF Cetacaine 2 %-2 %-14 % (200 mg/sec) aerosol,spray 1 spray mucous membrane ONCE PRN (Reason: pain) 7 Days Qty: 5 0RF Rx Instructions: once daily prn Continued aspirin 81 mg Tablet,Delayed Release (Dr/Ec) 81 mg PO QAM Tylenol 8 Hour 650 mg Tablet Extended Release 1,300 mg PO BID oxybutynin chloride 5 mg tablet 5 mg PO BID verapamil 240 mg capsule,ext rel. pellets 24 hr 240 mg PO QAM oxycodone 5 mg tablet See Rx Instructions .ROUTE .COMPLEX Rx Instructions: 10mg po qam then 5mg po q6h prn pain Vitamin C 500 mg Tablet 500 mg PO QAM 14 Days Qty: 14 0RF furosemide 40 mg tablet 40 mg PO QAM Hold Instructions: Resume on 03/08/22. trazodone 50 mg tablet 50 mg PO BEDTIME atorvastatin 10 mg tablet 10 mg PO QAM hydralazine 25 mg tablet 25 mg PO Q8H potassium chloride 10 mEq tablet extended release 10 meq PO QAM Hold Instructions: Resume on 03/13/22. levothyroxine 25 mcg tablet 25 mcg PO QAM gabapentin 300 mg capsule See Rx Instructions .ROUTE .COMPLEX Rx Instructions: 300mg po qam and 600mg po qpm duloxetine 60 mg capsule,delayed release(DR/EC) 120 mg PO QAM Savella 25 mg tablet 25 mg PO BID Discontinued amoxicillin-pot clavulanate 875-125 mg tablet 1 tab PO Q12H Rx Instructions: rx filled 09/16/22 7d/s Discharge Orders: Discharge Order (Routine); Ordered 09/23/22 Ordered By: Chavez Laureano Other Ambulatory Orders: Complete Blood Count w/Auto (Routine) Timeframe: 1 Week Location: Determined by Patient Ordered By: Chavez Laureano Comprehensive Metabolic Panel (Routine) Timeframe: 1 Week Facility: [facility] - Location: Lab - Main Lab Ordered By: Chavez Laureano [facility]errals: [facility] [Outside] Tremayne Sweet [Primary Care Provider] - 1 week ( OFFICE WILL CALL WITH APPOINTMENT) Patient Instructions: Ertapenem (By injection) (INVanz), Urinary Tract Infection in Women (GEN), Sepsis (GEN), Extended Spectrum Beta-Lactamase (GEN), Opioid Safety Discharge Attestations Time Spent in Discharge Care*: less than 30 min Quality Metrics Clinical Quality Measures [ No reported AMI, CVA or VTE this stay] Coding Level of Care Code Acute Code for [facility] Fwd Diagnoses ESBL (extended spectrum beta-lactamase) producing bacteria infection A49.9; Z16.12 Septic shock A41.9; R65.21 Sepsis A41.9 Sepsis acute organ dysfunction status: with acute organ dysfunction Severe sepsis acute organ dysfunction type: unspecified Severe sepsis shock status: with septic shock Urinary tract infection N39.0 Hypothyroidism E03.9 Acute kidney injury superimposed on chronic kidney disease N17.9; N18.9
[2022-09-23] MEDS: pantoprazole 40 mg SDV IVP (09:54)
[2022-09-23] MEDS: ertapenem 1,000 MG in sodium chloride 0.9% (plus) 100 ML 200 MG IV (10:54)
== END 2022-09-23 12:00 | disposition home health service (06) | DRG 871 ==
LOC: ER 09-17 02:05 → ICU 09-17 02:15 → MEDSURG 09-19 10:53
PROVIDERS: Family Medicine; Physician Assistant; Student in an Organized Health Care Education/Training Program; Admitting Provider Internal Medicine; Emergency Provider Emergency Medicine; PCP Family Medicine; Visit Provider Internal Medicine
DX: A41.9 Sepsis, unspecified organism (principal); G93.41 Metabolic encephalopathy; R65.21 Severe sepsis with septic shock; N39.0 Urinary tract infection, site not specified; Z16.12 Extended spectrum beta lactamase (ESBL) resistance; N17.9 Acute kidney failure, unspecified; B96.20 Unspecified Escherichia coli [E. coli] as the cause of diseases classified elsewhere; E03.9 Hypothyroidism, unspecified; I12.9 Hypertensive chronic kidney disease with stage 1 through stage 4 chronic kidney disease, or unspecified chronic kidney disease; K59.00 Constipation, unspecified; Z79.891 Long term (current) use of opiate analgesic; Z87.440 Personal history of urinary (tract) infections; E78.5 Hyperlipidemia, unspecified; F32.A Depression, unspecified; G89.29 Other chronic pain; M54.9 Dorsalgia, unspecified
CPT/HCPCS: 36415; 36556; 36569; 51702; 71045; 74176; 76705; 80048; 80053; 81001; 82803; 83605; 83735; 84100; 84145; 85007; 85025; 86140; 87040; 87077; 87086; 87150; 87186; 87486; 87581; 87633; 87641; 96365; 96367; 96372; 96376; 97110; 97116; 97161; 97530; 99285; C1751; C9113; J0360; J0456; J0696; J1335; J1644; J2185; J2405; J3490; J7030; J7040; J7050; J7060

== ENCOUNTER 2022-10-12 06:00 | Outpatient (RCR) | payer MEDICARE, OTHER, SELFPAY | END 2022-11-11 23:59 | disposition home or self-care (01) | LOC: SPT 06:00 | PROVIDERS: PCP Family Medicine; Visit Provider Family Medicine | DX: I89.0 Lymphedema, not elsewhere classified (principal) | CPT/HCPCS: 97140 ==

== ENCOUNTER 2022-12-12 06:00 | Outpatient (RCR) | payer MEDICARE, OTHER, SELFPAY | END 2023-01-11 23:59 | disposition home or self-care (01) | LOC: SPT 06:00 | PROVIDERS: PCP Family Medicine; Visit Provider Family Medicine | DX: I89.0 Lymphedema, not elsewhere classified (principal) | CPT/HCPCS: 97140 ==

== ENCOUNTER 2023-04-14 06:00 | Outpatient (RCR) | payer MEDICARE, OTHER, SELFPAY | END 2023-05-13 23:59 | disposition home or self-care (01) | LOC: SPT 06:00 | PROVIDERS: PCP Family Medicine; Visit Provider Family Medicine | DX: I89.0 Lymphedema, not elsewhere classified (principal) | CPT/HCPCS: 97140 ==

== ENCOUNTER 2023-10-13 06:00 | Outpatient (RCR) | payer MEDICARE, OTHER, SELFPAY | END 2023-11-12 23:59 | disposition home or self-care (01) | LOC: SPT 06:00 | PROVIDERS: PCP Family Medicine; Visit Provider Family Medicine | DX: I89.0 Lymphedema, not elsewhere classified (principal) | CPT/HCPCS: 97140 ==

== ENCOUNTER 2024-06-16 12:59 | Outpatient (RCR) | payer MEDICARE, OTHER, SELFPAY | END 2024-07-14 23:59 | disposition home or self-care (01) | LOC: SPT 12:59 | PROVIDERS: PCP Family Medicine; Visit Provider Family Medicine | DX: I89.0 Lymphedema, not elsewhere classified (principal) | CPT/HCPCS: 97161 ==